=== PATIENT | female | born 1970 | race Caucasian/White ===

== ENCOUNTER 2016-11-19 16:42 | Inpatient (IN) | payer MEDICAID, OTHER ==
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
[2016-11-19] MEDS ORDERED: ZIPRASIDONE 20 MG VIAL IM STA (17:13)
[2016-11-19] MEDS ORDERED: LORazepam 2 MG/ML SYRINGE IM STA (22:52)
[2016-11-20] MEDS ORDERED: ZIPRASIDONE 20 MG VIAL IM PRN (05:26)
[2016-11-20] MEDS ORDERED: ACETAMINOPHEN TAB 325 MG TAB PO PRN (05:26)
[2016-11-20] MEDS ORDERED: MAGNESIUM HYDROXIDE 2,400 MG/10 ML CUP PO PRN (05:26)
[2016-11-20] MEDS ORDERED: MAG HYDROX/AL HYDROX/SIMETH 30 ML CUP PO PRN (05:26)
[2016-11-20] MEDS ORDERED: LORazepam 1 MG TAB PO PRN (06:16)
[2016-11-20] MEDS: CHOLECALCIFEROL 1,000 UNIT TAB PO SCH (08:56)
[2016-11-20] MEDS: PANTOPRAZOLE 40 MG TABLET PO SCH (08:56)
[2016-11-20] MEDS: TOPIRAMATE 25 MG TAB PO SCH ×2 (08:56→20:55)
[2016-11-20] MEDS: VERAPAMIL SR 120 MG TABLET.ER PO SCH (08:56)
[2016-11-20] MEDS: INDOMETHACIN 25 MG CAP PO SCH (08:57)
[2016-11-20] MEDS ORDERED: GABAPENTIN 300 MG CAP PO SCH (09:00)
[2016-11-20] MEDS: IBUPROFEN 800 MG TAB PO PRN (09:01)
[2016-11-20] MEDS: HYDROcodone/APAP 5-325MG 1 EACH TAB PO PRN ×2 (11:36→23:47)
[2016-11-20] MEDS ORDERED: NICOTINE 14MG/24HR PATCH TRANSDERM SCH (12:00)
[2016-11-20] MEDS: NICOTINE 21MG/24HR PATCH TRANSDERM SCH (13:16)
--- NOTE | 2016-11-20 14:29 | P.HP ---
Psychiatric H&P - . H&P Date: 11/20/16 History & Physical: Allergies Allergy/AdvReac Type Severity Reaction Status Date / Time No Known Allergies Allergy Verified 11/19/16 16:52 Vital Signs Temp Pulse 88 11/19/16 23:30 Resp 18 11/19/16 23:30 BP 147/82 11/19/16 23:30 Pulse Ox 97 11/19/16 23:30 11/20/16 14:16 IDENTIFYING DATA: A 46 year old single female patient HPI: Was admitted to the inpatient psychiatric unit at [facility] on an involuntary basis. 3 separate petitions done, one by boyfriend, one by her aunt and one by her mother. Mother's petition makes reference to the patient threatening suicide by taking all her medicine and "threatened to shoot me and everyone in family." The patient relays that her mom called the realtime court reporter and reports that her mom goes" overboard." Patient states that her mom thought that she was going to do something to herself. She says that her son overdosed a few days ago and she was trying to get her family to listen to her. She states there was also some alcohol involved at sounds on her part. She says she feels like things were taken out of context. Patient states that she got really mad and she tends to say things but she never acts on them. She says the issue with her son has increased her level of anxiety. She does tend to worry a lot. She also says she has a hard time concentrating. She does relate that she made some threatening statements in general but not to a specific person. She feels like she is betts. PAST PSYCHIATRIC HISTORY: She denies any history of suicide attempts. She denies any psychiatric hospital or lesions. She is not in any current outpatient treatment. She denies any current psychotropic medications. She has been on Lexapro in the past which she took for approximately a year. She has been on Xanax in the past which helped her. She does think she has had some manic-type episodes. She denies that she's had any episodes where she's had significant reckless behaviors, says she's probably had some racing thoughts. PMH: Headaches, back/leg injuries, low vitamin D, gastroesophageal reflux disease ALLERGIES: No known ALLERGIES MEDICATIONS: Tylenol when necessary, [place] when necessary, Maalox when necessary , vitamin D3, Flexeril when necessary, gabapentin, Motrin when necessary, Indocin, Ativan when necessary, milk of magnesia when necessary, Habitrol patch , Protonix, Topamax, Isoptin SR, Geodon when necessary CHEMICAL DEPENDENCY HISTORY: Drinks occasional alcohol, says it's never been a problem. FAMILY PSYCHIATRIC HISTORY: Paternal uncle with schizophrenia, mom she thinks has depression. FAMILY CHEMICAL DEPENDENCY HISTORY: Not known at this time. SOCIAL HISTORY: Was living with her mom, not sure what she is going to do in terms of living situation when she gets out of here. She is single, never been . She doesn't current relationship. She has 2 children. She is not currently working. MENTAL STATUS EXAM: She is alert and cooperative with the interview overall. Her speech shows some rapidness at times. Her mood is described as "definitely depressed about it." She believes also feeling agitated because she sitting here instead of the oldest see her relatives. She denies any auditory or visual hallucinations. She denies any thoughts of harm to self or others. She does report that she gets angry at her mom but denies any actual thoughts of harm to her. She does not seem to make any lorenzo delusional statements. Cognitively she appears very grossly intact. She does seem to lose her focus on the examination at times. Her insight has some limitations, judgment shows evidence of recent impairment. STRENGTHS/WEAKNESSES: Strengths-some support; weaknesses-coping skills INTELLECTUAL FUNCTIONING: average IMPRESSIONS: AXIS I : unspecified depressive disorder; rule out bipolar 2 disorder depressed ; generalized anxiety disorder AXIS II: deferred AXIS III: history of back/leg injuries, low vitamin D, gastroesophageal reflux disease, headaches AXIS IV: family stress, living situation AXIS V: 30 PLAN: Patient will be admitted to the inpatient psychiatric unit at [facility] on an involuntary basis. Second clinical certificate is done for involuntary commitment. Patient is not agreeable for adult formal voluntary. She'll be placed on SP 15 minute precautions. We'll monitor regarding any suicidal ideations or thoughts of harm to others. Medical consultation will be ordered and Baseline laboratory workup will be done the patient. I will cover this patient for Dr. Roque through the weekend. She'll participate in group and activity therapies. We'll titrate up on Neurontin 400 mg 3 times a day to help assist with some mood stabilization properties as well as may also get further benefit for anxiety. We'll also reinitiated Lexapro for depression and anxiety at 10 more grams daily. We will look into any family supports. Estimated length of stay is 5-7 days. Prognosis is guarded.
[2016-11-20] MEDS: ESCITALOPRAM 10 MG TAB PO SCH (15:06)
[2016-11-20] MEDS: GABAPENTIN 400 MG CAP PO SCH ×2 (15:07→20:55)
[2016-11-20] MEDS: CYCLOBENZAPRINE 10 MG TAB PO PRN (15:08)
--- NOTE | 2016-11-20 18:56 | CONS ---
DATE OF CONSULTATION: REASON FOR CONSULTATION: Management of hypertension. Recommendations regarding antihypertensive medications and medical clearance. 46-year-old female is admitted to the hospital through the psychiatry floor because of suicidal ideation and ( ) the patient denied any fever or chills. The patient denied any nausea or vomiting. The patient denied any abdominal pain, dysuria and the patient is definitely depression. REVIEW OF SYSTEMS: CONSTITUTIONAL: No fever, no malaise, no fatigue. HEENT: No recent visual problems or hearing problems. Denied any sore throat. CARDIOVASCULAR: No chest pain, orthopnea, PND, no palpitations, no syncope. PULMONARY: No shortness of breath, no cough, no hemoptysis. GASTROINTESTINAL: No diarrhea, no nausea, no vomiting, no abdominal pain. Normoactive bowel sounds. NEUROLOGICAL: No headaches, no weakness, no numbness. HEMATOLOGICAL: Denies any bleeding or petechiae. GENITOURINARY: Denies any burning micturition, frequency, or urgency. MUSCULOSKELETAL/RHEUMATOLOGICAL: Denies any joint pain, swelling, or any muscle pain. ENDOCRINE: Denies any polyuria or polydipsia. The rest of the 14 point review of systems is negative. Home medications include: 1. Cholecalciferol. 2. Gabapentin. 3. Acetaminophen. 4. Hydrocodone. 5. ( ). 6. Potassium. 7. ( ). 8. Depo Provera. 9. Protonix. 10. Topamax. 11. Verapamil. 12. The patient also takes cyclobenzaprine. ALLERGIES: No known drug allergies. PAST MEDICAL HISTORY: Significant for hypertension, migraine. Patient takes Verapamil actually for hypertension, which also helps with migraine, chronic low back pain and peripheral neuropathy, orthopedic surgery in the past. The patient does smoke. Daily use of marijuana. Daily alcohol use and marijuana use. PHYSICAL EXAMINATION: VITAL SIGNS: Temperature afebrile, pulse of 92, blood pressure is 112/68, saturating at 100% on room air. GENERAL: The patient is alert and oriented x3, not in any acute distress. Well developed, well nourished. HEENT: Pupils are round and equally reacting to light. EOMI. No scleral icterus. No conjunctival pallor. Normocephalic, atraumatic. No pharyngeal erythema. No thyromegaly. CARDIOVASCULAR: S1 and S2 present. No murmurs, rubs, or gallops. PULMONARY: Chest is clear to auscultation, no wheezing or crackles. ABDOMEN: Soft, nontender, nondistended, normoactive bowel sounds. No palpable organomegaly. MUSCULOSKELETAL: No joint swelling or deformity. EXTREMITIES: No cyanosis, clubbing, or pedal edema. NEUROLOGICAL: Gross neurological examination did not reveal any focal deficits. SKIN: No rashes. LABORATORY DATA: I do not have the lab data available at this point of time. ASSESSMENT AND PLAN: 1. Suicidal ideation and severe depression, management as per primary service. 2. Hypertension and patient appears to be done well on Verapamil ( ) and also helps with her migraine. Patient does have migraine and patient also uses Topamax, recommend to continue both. 3. Migraine management as mentioned above. 4. Gastroesophageal reflux disease, continue with Protonix. 5. Peripheral neuropathy and chronic low back pain and continue her home medication. Patient does not have any signs or symptoms of gastritis or gastroesophageal reflux disease. Patient is already on proton pump inhibitor which can be continued as well. But needs to be switched H2-isabelle as an outpatient, long-term proton pump inhibitors have a lot of side effects including osteoporosis. Thank you for letting me participate in this patient's care. Will sign off at this point of time. Call us back if needed.
[2016-11-21 07:12] VITALS: TEMP 98
[2016-11-21] MEDS: CHOLECALCIFEROL 1,000 UNIT TAB PO SCH (08:33)
[2016-11-21] MEDS: TOPIRAMATE 25 MG TAB PO SCH ×2 (08:37→20:20)
[2016-11-21] MEDS: NICOTINE 21MG/24HR PATCH TRANSDERM SCH (08:37)
[2016-11-21] MEDS: GABAPENTIN 400 MG CAP PO SCH ×3 (08:37→20:20)
[2016-11-21] MEDS: PANTOPRAZOLE 40 MG TABLET PO SCH (08:37)
[2016-11-21] MEDS: ESCITALOPRAM 10 MG TAB PO SCH (08:38)
[2016-11-21] MEDS: CYCLOBENZAPRINE 10 MG TAB PO PRN ×3 (08:38→22:25)
[2016-11-21] MEDS: INDOMETHACIN 25 MG CAP PO SCH (08:38)
[2016-11-21] MEDS: HYDROcodone/APAP 5-325MG 1 EACH TAB PO PRN ×2 (08:39→20:21)
[2016-11-21] MEDS: IBUPROFEN 800 MG TAB PO PRN ×3 (08:41→22:25)
[2016-11-21] MEDS: VERAPAMIL SR 120 MG TABLET.ER PO SCH (08:45)
[2016-11-21 10:55] LABS: Basophils % (A) 0 %; CH 31.3; CHCM 31.8; Eosinophils # (A) 0.2 k/uL (0-0.7); Eosinophils % (A) 3 %; HDW 2.32; HGB 11.8 gm/dL (11.4-16.0); Luc # (Auto) 0.06; Luc % (Auto) 1; Lymphocytes # (A) 1.7 k/uL (1.0-4.8); Lymphocytes % (A) 24 %; MCH 30.1 pg (25.0-35.0); MCHC 30.3 g/dL (31.0-37.0); MCV 99.1 fL (80.0-100.0); Mean Platelet Volume 7.2; Monocytes # (A) 0.4 k/uL (0-1.0); Monocytes % (A) 5 %; Neutrophils # (A) 4.7 k/uL (1.3-7.7); Neutrophils % (A) 67 %; RBC 3.93 m/uL (3.80-5.40); WBC 7.1 k/uL (3.8-10.6); WBC (Perox) 7.38
[2016-11-21 11:08] LABS: ALT 33 U/L (9-52); AST 23 U/L (14-36); Alkaline Phosphatase 60 U/L (38-126); Anion Gap 10 mmol/L; Blood Urea Nitrogen 13 mg/dL (7-17); Calcium 9.3 mg/dL (8.4-10.2); Carbon Dioxide 25 mmol/L (22-30); Chloride 107 mmol/L (98-107); Glucose 83 mg/dL (74-99); Non-African American GFR(MDRD) >60 (>60 ml/min/1.73 sqM); Sodium 142 mmol/L (137-145); Total Bilirubin 0.4 mg/dL (0.2-1.3); Total Protein 6.7 g/dL (6.3-8.2)
[2016-11-21 11:09] VITALS: BMI 26.3
--- NOTE | 2016-11-21 18:04 | P.PN ---
Progress Note - Text Interval history: Patient seen in cross coverage today for Dr. Roque. She reports that she slept well last night. She is eating well. She says that she did talk with a family member on the phone which seemed to go well. She does feel like her mood is doing well considering that she is in the hospital she relays. She does seem agreeable to treatment and agreeable to outpatient treatment. She does not seem to voice any adverse psychotropic medication side effects she relays that she has been off of the Indocin because she was only supposed to take it for 2 weeks. Mental status exam: She is alert and cooperative with the interview. Her speech is fluent, not rapid or pressured. Thought processes organized. She describes her mood is doing well considering that she is in the hospital. She denies any thoughts of harm to self or others. There is no evidence of psychosis or agitation at this time. Plan: Patient will be maintained on current psychotropic medications. Dr. Roque will initiate care this patient starting tomorrow. She will be having upcoming deferral which she is given education about. Continue to monitor regarding any thoughts of harm to self or others. Monitor for any psychotropic medication side effects.
[2016-11-22] MEDS: IBUPROFEN 800 MG TAB PO PRN ×2 (09:33→21:42)
[2016-11-22] MEDS: HYDROcodone/APAP 5-325MG 1 EACH TAB PO PRN ×2 (09:34→21:41)
[2016-11-22] MEDS: NICOTINE 21MG/24HR PATCH TRANSDERM SCH (09:35)
[2016-11-22] MEDS: GABAPENTIN 400 MG CAP PO SCH ×4 (09:35→21:41)
[2016-11-22] MEDS: ESCITALOPRAM 10 MG TAB PO SCH (09:35)
[2016-11-22] MEDS: PANTOPRAZOLE 40 MG TABLET PO SCH (09:35)
[2016-11-22] MEDS: CHOLECALCIFEROL 1,000 UNIT TAB PO SCH (09:35)
[2016-11-22] MEDS: VERAPAMIL SR 120 MG TABLET.ER PO SCH (09:35)
[2016-11-22] MEDS: TOPIRAMATE 25 MG TAB PO SCH ×3 (09:35→21:41)
[2016-11-22] MEDS: CYCLOBENZAPRINE 10 MG TAB PO PRN (15:36)
[2016-11-22 15:58] VITALS: RESP 18
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
[2016-11-23 06:46] VITALS: BP 110/57; PULSE 72
[2016-11-23] MEDS: NICOTINE 21MG/24HR PATCH TRANSDERM SCH (09:06)
[2016-11-23] MEDS: PANTOPRAZOLE 40 MG TABLET PO SCH (09:07)
[2016-11-23] MEDS: GABAPENTIN 400 MG CAP PO SCH (09:07)
[2016-11-23] MEDS: CHOLECALCIFEROL 1,000 UNIT TAB PO SCH (09:08)
[2016-11-23] MEDS: ESCITALOPRAM 10 MG TAB PO SCH (09:08)
[2016-11-23] MEDS: VERAPAMIL SR 120 MG TABLET.ER PO SCH (09:08)
[2016-11-23] MEDS: IBUPROFEN 800 MG TAB PO PRN (09:10)
[2016-11-23] MEDS: HYDROcodone/APAP 5-325MG 1 EACH TAB PO PRN (09:12)
[2016-11-23] MEDS: CYCLOBENZAPRINE 10 MG TAB PO PRN (09:13)
--- NOTE | 2016-11-23 13:12 | P.DS ---
Providers Date of admission: 11/19/16 23:17 Attending physician: Anmol Roque MD Consults: 11/20/16 09:48 Consult Physician Routine Consulting Provider: Jhon Santiago Consult Reason/Comments: h&p Do you want consulting provider notified?: Already Contacted Primary care physician: Raheem Newberry - Discharge Diagnosis(es) (1) Alcohol use disorder Current Visit: Yes Status: Chronic Priority: High (2) Depressive disorder, not elsewhere classified Current Visit: Yes Status: Chronic Priority: Medium (3) Cluster B personality disorder Current Visit: Yes Status: Chronic Priority: High (4) Homicidal ideation Current Visit: Yes Status: Resolved Priority: Low Hospital Course: Mrs. Gomez is a 46-year-old female who presented to the psychiatric unit involuntarily with 3 separate petitions; one by her boyfriend, one by her aunt and one by her mother. The petitions reference her making suicidal statements about overdosing on medication and threatening to shoot her mother and other family. She was minimally cooperative and denied the allegations in the petition. I spoke with her mother and her aunt Mary Anne. They report that whenever she drinks alcohol she becomes "mean", hostile and threatening. On the day of admission she was drinking alcohol and told her aunt that she wanted to "kill" her mother and other family members. Her mother reported that Barbi "has changed" over the last 6 months which she seems more irritable and difficulty concentrating. Barbi was preoccupied about his son who would overdose on heroin about a week prior to admission. She alleged that she was angry with her family because they were not sympathetic towards her son. She denied that she had directly threatened her mother and accepted no responsibility for her actions or behavior. We admitted her to the psychiatric unit on a care of this underwriter. We provided a biopsychosocial assessment. The technology methodology consultant long distance operator completed the physical exam and medical history. He long distance operator diagnosed hypertension, migraine headaches, GERD, peripheral neuropathy and low back pain. He recommended to continue her outpatient medications including verapamil, Topamax, Protonix and gabapentin. She did not show signs or symptoms of alcohol withdrawal. She was angry and hostile. We started Lexapro 10 mg per day for the treatment of depression symptoms. She denied side effects to the initial doses. She takes client a trial of lithium and/or Seroquel for augmentation of antidepressant and and treatment of her anger and irritability. The geriatric social work professor met with her and her . Her was supportive of her receiving services and did not believe that she was a threat to herself or her family. She felt agreed to a deferral and comply with outpatient mental health treatment. During our final meeting she denied that she has thoughts of harm towards her mother ( although she continued to deny that she had made such statements to her aunt). We exercise due to warn by notifying her mother that she would be discharged to her boyfriend's home. Out diagnostic impressions include alcohol use disorder, unspecified depressive disorder and cluster B personality disorder. Patient Condition at Discharge: Fair Plan - Discharge Summary New Discharge Prescriptions: Escitalopram [Lexapro] 10 mg PO DAILY #30 tab Gabapentin [Neurontin] 400 mg PO TID #90 cap Nicotine 21Mg/24Hr Patch [Habitrol] 1 patch TRANSDERM DAILY #14 patch Discharge Medication List Cyclobenzaprine [Flexeril] 10 mg PO TID PRN #15 tab 04/19/16 [Rx] Cholecalciferol [Vitamin D3] 5,000 unit PO DAILY 11/19/16 [History] Hydrocodone/Acetaminophen [[place] 5-325] 1 tab PO BID PRN 11/19/16 [History] Ibuprofen [Motrin] 800 mg PO TID PRN 11/19/16 [History] Indomethacin [Indocin] 50 mg PO DAILY 11/19/16 [History] Medroxyprogesterone Acetate [Depo-Provera] 150 mg IM Q90D 11/19/16 [History] Pantoprazole [Protonix] 40 mg PO DAILY 11/19/16 [History] Topiramate [Topamax] 25 mg PO BID 11/19/16 [History] Verapamil HCl [Verapamil ER] 120 mg PO DAILY 11/19/16 [History] Escitalopram [Lexapro] 10 mg PO DAILY #30 tab 11/23/16 [Rx] Gabapentin [Neurontin] 400 mg PO TID #90 cap 11/23/16 [Rx] Nicotine 21Mg/24Hr Patch [Habitrol] 1 patch TRANSDERM DAILY #14 patch 11/23/16 [ Rx] Follow up Appointment(s)/Referral(s): Raheem Newberry MD [Primary Care Provider] - 1-2 days Discharge Disposition: HOME SELF-CARE
== END 2016-11-23 14:29 | disposition home or self-care (01) | DRG 881 ==
LOC: EC 16:42 → 3MHU 23:17
PROVIDERS: ADMIT Psychiatry & Neurology Psychiatry; ATTEND Psychiatry & Neurology Psychiatry
DX: F32.9 Major depressive disorder, single episode, unspecified (principal); G62.9 Polyneuropathy, unspecified; R45.851 Suicidal ideations; F10.10 Alcohol abuse, uncomplicated; I10 Essential (primary) hypertension; R45.850 Homicidal ideations; F60.89 Other specific personality disorders; G43.909 Migraine, unspecified, not intractable, without status migrainosus; K21.9 Gastro-esophageal reflux disease without esophagitis; G89.29 Other chronic pain; M54.5 Low back pain; F12.90 Cannabis use, unspecified, uncomplicated; Z91.410 Personal history of adult physical and sexual abuse; Z78.1 Physical restraint status; F17.200 Nicotine dependence, unspecified, uncomplicated; F41.9 Anxiety disorder, unspecified; Z79.899 Other long term (current) drug therapy; Z81.8 Family history of other mental and behavioral disorders
CPT/HCPCS: 80053; 82075; 84443; 85025; 96372; 99285

== ENCOUNTER → 2017-12-13 | Outpatient (CLI) | payer OTHER ==
[2017-12-13 12:36] LABS: Blood Urea Nitrogen 15 mg/dL (7-17)
== END | disposition home or self-care (01) ==
LOC: LABWHC1 11:53
PROVIDERS: ATTEND Psychiatry & Neurology Pain Medicine
DX: Z51.81 Encounter for therapeutic drug level monitoring (principal)
CPT/HCPCS: 36415; 82565; 84520

== ENCOUNTER → 2018-01-10 | Outpatient (CLI) | payer OTHER ==
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
--- NOTE | 2018-01-11 12:13 | MM ---
Reason for exam: screening (asymptomatic). Last mammogram was performed 1 year and 9 months ago. Physical Findings: A clinical breast exam by your physician is recommended on an annual basis and results should be correlated with mammographic findings. MG Screening Mammo w CAD Bilateral CC and MLO view(s) were taken. Prior study comparison: April 23, 2016, bilateral MG screening mammo w CAD. The breast tissue is heterogeneously dense. This may lower the sensitivity of mammography. No suspicious abnormality. No significant changes when compared with prior studies. ASSESSMENT: Negative, BI-RAD 1 RECOMMENDATION: Routine screening mammogram of both breasts in 1 year.
[2018-01-12 08:51] LABS: C. trachomatis,PCR Negative (Neg,Equiv); Chlamydia trachomatis Source Cervix; N. gonorrhoeae,PCR Negative (Neg,Equiv); Neisseria Source Cervix
== END | disposition home or self-care (01) ==
LOC: LABWHC1 08:08
PROVIDERS: ATTEND Obstetrics & Gynecology
DX: Z12.31 Encounter for screening mammogram for malignant neoplasm of breast (principal); R10.2 Pelvic and perineal pain; Z11.3 Encounter for screening for infections with a predominantly sexual mode of transmission
CPT/HCPCS: 77067; 87491; 87591

== ENCOUNTER → 2018-01-17 | Outpatient (CLI) | payer OTHER ==
--- NOTE | 2018-01-17 15:13 | US ---
EXAMINATION TYPE: US pelvic complete plus dopplers DATE OF EXAM: 01/17/2018 COMPARISON: 10/13/2016 CLINICAL HISTORY: 47-year-old female R10.2 PELVIC PAIN; intermittent bilateral pelvic pain; right rosa m e greater than left now; ; on Dep provera shot; LMP approximately 2 months ago TECHNIQUE: Transvaginal (TV). Patient unable to fill bladder after 1 hour, so, transvaginal sonogra phic images were medically necessary to better assess the anatomy as patient chose not to wait for th e bladder to fill. Color Doppler and spectral waveform analysis of the ovarian arteries and veins. Date of LMP: 2 months ago Findings: Uterus: Anteverted measuring 5.9 x 3.5 x 3.1 cm. There is a small 2 mm cervical nabothian cyst. Endometrial Stripe: 0.8 cm. There is a rounded 6 x 5 x 4 mm cystic area along the anterior right para median endometrium along the fundus/body. Right Ovary: 2.5 x 2.7 x 1.4 cm Left Ovary: 3.2 x 1.6 x 2.4 cm Small follicles are present on both sides. Satisfactory arterial and venous flow seen in both ovaries. No evident adnexal abnormality or cul-de-sac free fluid. IMPRESSION: 1. No sonographic evidence for ovarian torsion. 2. Small 6 mm cystic area along the endometrium at the fundus/body. Nonspecific finding, possible foc al area of endometrial breakdown. Consider 6-8 week follow-up exam to reassess. 3. Endometrial stripe measuring 8 mm.
== END | disposition home or self-care (01) ==
LOC: RADUSWWP 12:56
PROVIDERS: ATTEND Obstetrics & Gynecology
DX: N85.8 Other specified noninflammatory disorders of uterus (principal)
CPT/HCPCS: 76830

== ENCOUNTER 2018-03-30 05:32 | Emergency (ER) | payer OTHER ==
[2018-03-30] MEDS ORDERED: LORazepam 2 MG/ML INJ IM STA (05:34)
[2018-03-30] MEDS ORDERED: ZIPRASIDONE 20 MG VIAL IM STA (05:34)
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
[2018-03-30 06:24] LABS: Basophils % (A) 0 %; Eosinophils # (A) 0.1 k/uL (0-0.7); Eosinophils % (A) 1 %; HCT 42.9 % (34.0-46.0); HGB 13.6 gm/dL (11.4-16.0); Lymphocytes # (A) 0.9 k/uL (1.0-4.8); Lymphocytes % (A) 9 %; MCH 29.9 pg (25.0-35.0); MCHC 31.7 g/dL (31.0-37.0); MCV 94.3 fL (80.0-100.0); Mean Platelet Volume 6.9; Monocytes # (A) 0.3 k/uL (0-1.0); Monocytes % (A) 3 %; Neutrophils % (A) 86 %; Platelet Count 378 k/uL (150-450); RBC 4.55 m/uL (3.80-5.40); RDW 13.4 % (11.5-15.5); WBC 10.4 k/uL (3.8-10.6)
[2018-03-30 06:51] LABS: Albumin 4.9 g/dL (3.5-5.0); Calcium 10.4 mg/dL (8.4-10.2); Potassium 3.9 mmol/L (3.5-5.1); Total Bilirubin 0.9 mg/dL (0.2-1.3); Total Protein 7.5 g/dL (6.3-8.2)
[2018-03-30 12:56] VITALS: BP 103/52; PULSE 78; RESP 16
[2018-03-30 13:00] VITALS: TEMP 98
== END 2018-03-30 12:55 | disposition home or self-care (01) ==
LOC: EC 05:32
DX: F43.20 Adjustment disorder, unspecified (principal); F19.10 Other psychoactive substance abuse, uncomplicated; I10 Essential (primary) hypertension; F17.200 Nicotine dependence, unspecified, uncomplicated; Z79.891 Long term (current) use of opiate analgesic; Z79.52 Long term (current) use of systemic steroids; Z79.899 Other long term (current) drug therapy
CPT/HCPCS: 82075; 36415; 93005; 80053; 84443; 85025; 99285; 96372 ×2; J2060; J3486

== ENCOUNTER → 2018-05-31 | Outpatient (CLI) | payer OTHER ==
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
== END | disposition home or self-care (01) ==
LOC: RADMRIMAIN 19:21
PROVIDERS: ATTEND Internal Medicine
DX: M48.02 Spinal stenosis, cervical region (principal); M50.30 Other cervical disc degeneration, unspecified cervical region; G37.8 Other specified demyelinating diseases of central nervous system; Q04.8 Other specified congenital malformations of brain
CPT/HCPCS: 70553; 72156; A9581

== ENCOUNTER 2019-11-04 20:18 | Inpatient (IN) | payer MEDICAID, OTHER ==
[2019-11-04] MEDS ORDERED: SODIUM CHLORIDE 0.9% 1,000 ML IV STA (20:48)
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
[2019-11-04] MEDS ORDERED: LORazepam 2 MG/ML INJ IM STA (20:52)
[2019-11-04] MEDS ORDERED: diphenhydrAMINE 50 MG/ML 1 ML VIAL IM STA (20:52)
[2019-11-04] MEDS ORDERED: ZIPRASIDONE 20 MG VIAL IM STA (20:53)
[2019-11-04] MEDS: LORazepam 2 MG/ML INJ IV STA ×2 (21:13→21:15)
[2019-11-04] MEDS ORDERED: LORazepam 2 MG/ML INJ IV STA (21:15)
[2019-11-04 21:19] LABS: Basophils # (A) 0.1 k/uL (0-0.2); Basophils % (A) 0 %; Eosinophils # (A) 0.3 k/uL (0-0.7); Eosinophils % (A) 2 %; HGB 13.4 gm/dL (11.4-16.0); Lymphocytes # (A) 2.8 k/uL (1.0-4.8); Lymphocytes % (A) 19 %; MCH 31.6 pg (25.0-35.0); MCHC 33.4 g/dL (31.0-37.0); MCV 94.7 fL (80.0-100.0); Mean Platelet Volume 6.9; Monocytes # (A) 0.6 k/uL (0-1.0); Monocytes % (A) 4 %; Neutrophils # (A) 10.5 k/uL (1.3-7.7); Neutrophils % (A) 72 %; Platelet Count 433 k/uL (150-450); RBC 4.22 m/uL (3.80-5.40); RDW 12.6 % (11.5-15.5); WBC 14.5 k/uL (3.8-10.6)
[2019-11-04 21:33] LABS: Acetaminophen <10.0 ug/mL; African American GFR (CKD) >90 (>60 ml/min/1.73 sqM); Anion Gap 12 mmol/L; Blood Urea Nitrogen 15 mg/dL (7-17); Calcium 9.9 mg/dL (8.4-10.2); Carbon Dioxide 23 mmol/L (22-30); Chloride 104 mmol/L (98-107); Glucose 103 mg/dL (74-99); Lithium <0.2 mmol/L; Non-African American GFR(CKD) 84 (>60 ml/min/1.73 sqM); Phosphorus 4.3 mg/dL (2.5-4.5); Potassium 3.7 mmol/L (3.5-5.1); Salicylate <1.0 mg/dL; Sodium 139 mmol/L (137-145)
[2019-11-04 21:38] LABS: Alcohol 82 mg/dL; Valproic Acid (Depakene) <10.0 ug/mL
[2019-11-04 23:04] LABS: Appearance,Urine Clear (Clear); Bilirubin,Urine Negative (Negative); Blood,Urine Negative (Negative); Color,Urine Yellow; Glucose,Urine (UA) Negative (Negative); Ketones,Urine Negative (Negative); Leukocyte Esterase,Urine Negative (Negative); Nitrite,Urine Negative (Negative); PH, Urine 5.5 (5.0-8.0); Protein,Urine Negative (Negative); Urobilinogen,Urine <2.0 mg/dL (<2.0)
[2019-11-04 23:15] LABS: Amphetamine Screen,Urine Detected (NotDetected); Barbiturate Screen,Urine Not Detected (NotDetected); Benzodiazepines Screen,Urine Not Detected (NotDetected); Cocaine Screen,Urine Not Detected (NotDetected); Methadone Screen, Urine Not Detected (NotDetected); Opiate Screen,Urine Not Detected (NotDetected); Oxycodone Screen, Urine Not Detected (NotDetected); Phencyclidine Screen,Urine Not Detected (NotDetected); Tricyclic Antidepressant,Urine Not Detected (NotDetected); Urn Cannabinoid Scrn Not Detected (NotDetected)
[2019-11-05] MEDS ORDERED: ZIPRASIDONE 20 MG VIAL IM PRN (03:34)
[2019-11-05] MEDS ORDERED: MAGNESIUM HYDROXIDE 2,400 MG/10 ML CUP PO PRN (03:34)
[2019-11-05] MEDS ORDERED: MAG HYDROX/AL HYDROX/SIMETH 30 ML CUP PO PRN (03:34)
[2019-11-05] MEDS ORDERED: LORazepam 2 MG/ML INJ IM PRN (03:38)
[2019-11-05] MEDS ORDERED: VORTIOXETINE HYDROBROMIDE 10 MG TABLET PO SCH (09:00)
[2019-11-05] MEDS: NICOTINE 14MG/24HR PATCH TRANSDERM SCH (10:05)
[2019-11-05] MEDS ORDERED: QUEtiapine 25 MG TAB PO PRN (13:04)
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
[2019-11-05 15:18] LABS: Albumin 4.9 g/dL (3.5-5.0); Bilirubin, Delta 0.4 mg/dL (0.0-0.2); Bilirubin,Unconjugated 0.3 mg/dL (0.0-1.1); Total Bilirubin 0.7 mg/dL (0.2-1.3); Total Protein 7.7 g/dL (6.3-8.2)
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
[2019-11-05 20:03] LABS: Hemoglobin A1C 5.2 % (4.0-6.0)
[2019-11-05] MEDS: MIRTAZAPINE 15 MG TAB PO SCH (20:47)
[2019-11-05] MEDS ORDERED: QUEtiapine 50 MG TAB PO SCH (21:00)
[2019-11-06] MEDS: NICOTINE 14MG/24HR PATCH TRANSDERM SCH (09:08)
--- NOTE | 2019-11-06 14:16 | P.PN ---
Subjective Progress Note Date: 11/06/19 Chief complaint: "I am pretty upset " Subjective: The patient has been seen today as follow-up, chart reviewed, case discussed with the treatment team. Patient slept about 2 hours last night. The patient remained confused and delusional. The patient is not able to carry on a conversation. The patient is insisting to be discharged and shows lack of insight into her mental health issues. The patient complained of poor sleep at night and insists that she would be able to sleep good and if she was home. The patient wonders in the hallway and is difficult to redirect. The patient's his speech is rambling and difficult to redirect. She denies any auditory or visual hallucinations but appears to be preoccupied and responding to internal cues. The patient denies any active suicidal or homicidal ideations at this time but appears paranoid. The patient is requesting to be seen by her primary care physician Dr. Smith. Objective - Vital Signs Vital signs: Vital Signs Temp 97.9 F 11/05/19 05:30 Pulse 100 11/05/19 05:30 Resp 16 11/05/19 05:30 BP 148/76 11/05/19 05:30 Pulse Ox 99 11/05/19 05:30 - Exam Mental Status Exam: General Appearance: Patient appears to be stated age is alert, directable. fPatient has fair eye contact. Behavior: Patient is seated without any agitated behavior. Appears to be anxious Speech: Patient's speech is rambling and difficult to redirect. Mood/Affect: Patient reports their mood/anxiety is depressed, affect is congruent Suicidality/Homicidality: Patient denies having suicidal or homicidal ideation. Perceptions: Patient denies any auditory or visual hallucinations but appears to be preoccupied and responding to internal cues Though content/process: Paranoia Memory and concentration: AOX3, grossly intact for the purposes of this session. Judgment and insight: Limited - Labs CBC & Chem 7: 11/04/19 21:05 11/04/19 21:05 Labs: Abnormal Lab Results - Last 24 Hours (Table) 11/04/19 Range/Units 21:05 Delta Bilirubin 0.4 H (0.0-0.2) mg/dL AST 73 H (14-36) U/L ALT 139 H (4-34) U/L Cholesterol 204 H (<200) mg/dL HDL Cholesterol 121 H (40-60) mg/dL Assessment and Plan Assessment: unspecified depressive disorder; rule out bipolar 2 disorder depressed; generalized anxiety disorder Plan: One-to-one supportive psychotherapy as well as reality orientation provided Limit setting Continue Remeron 7.5 mg by mouth daily at bedtime We will increase Seroquel to mg 100 mg by mouth daily at bedtime and 50 mg twice a day when necessary. We will consult Dr. Raheem Good per patient's request. We'll continue to monitor monitor patient closely for any possible side effects of worsening of the symptoms at this time
[2019-11-06] MEDS ORDERED: QUEtiapine 50 MG TAB PO PRN (21:00)
[2019-11-06] MEDS ORDERED: QUEtiapine 100 MG TAB PO SCH (21:00)
[2019-11-06] MEDS: MIRTAZAPINE 15 MG TAB PO SCH (21:41)
[2019-11-07] MEDS: NICOTINE 14MG/24HR PATCH TRANSDERM SCH (10:41)
--- NOTE | 2019-11-07 14:44 | P.PN ---
Subjective Progress Note Date: 11/07/19 Chief complaint: "I am pretty upset " Subjective: The patient has been seen today as follow-up, chart reviewed, case discussed with the treatment team. The patient refused to come into the office for the session and was seen in her room. The patient refused to answer questions. The patient reports not doing well and reports feeling increasingly depressed about being in the hospital. The patient reports poor sleep and appetite. The patient remained somewhat confused and delusional at this time. The patient has been isolating herself in her room and does not participate in milieu therapy. The patient has been compliant with the medications and denies any side effects at this time. Objective - Vital Signs Vital signs: Vital Signs Temp 97.9 F 11/05/19 05:30 Pulse 97 11/06/19 23:56 Resp 20 11/06/19 21:45 BP 133/88 11/06/19 23:56 Pulse Ox 95 11/06/19 21:45 - Exam Mental Status Exam: General Appearance: Patient appears to be stated age is alert, directable. f Patient has fair eye contact. Behavior: Patient is seated without any agitated behavior. Appears to be anxious Speech: Patient's speech is rambling and difficult to redirect. Mood/Affect: Patient reports their mood/anxiety is depressed, affect is congruent Suicidality/Homicidality: Patient denies having suicidal or homicidal ideation. Perceptions: Patient denies any auditory or visual hallucinations but appears to be preoccupied and responding to internal cues Though content/process: Paranoia Memory and concentration: AOX3, grossly intact for the purposes of this session. Judgment and insight: Limited - Labs CBC & Chem 7: 11/04/19 21:05 11/04/19 21:05 Assessment and Plan Assessment: unspecified depressive disorder; rule out bipolar 2 disorder depressed; generalized anxiety disorder Plan: One-to-one supportive psychotherapy as well as reality orientation provided Limit setting Continue Remeron 7.5 mg by mouth daily at bedtime We will increase Seroquel to mg 150 mg by mouth daily at bedtime and 50 mg twice a day when necessary. We will consult Dr. Raheem Good per patient's request. We'll continue to monitor monitor patient closely for any possible side effects of worsening of the symptoms at this time
[2019-11-07] MEDS ORDERED: QUEtiapine 50 MG TAB PO SCH (21:00)
[2019-11-07] MEDS: MIRTAZAPINE 15 MG TAB PO SCH (22:36)
[2019-11-08] MEDS: NICOTINE 14MG/24HR PATCH TRANSDERM SCH (09:37)
--- NOTE | 2019-11-08 16:14 | P.PN ---
Progress Note - Text Progress Note Date: 11/08/19 Interval History: Patient was seen sitting on her bed in her room and was directable and agreeable to speak in the office. Patient appeared to be somewhat hesitant and suspicious of senior technical writer and was very constricted in her affect throughout the interview. Patient spoke about the circumstances of her coming into the hospital and kept on referring back to her being voluntary status on the unit. Patient threatened to leave the hospital many times to senior technical writer stating "you can't keep me here if I feel forced". Patient was paranoid and endorsed several different delusions. Patient was resistant to signed the medication consent form and did not want to speak about medications to senior technical writer. Patient states that her sleep continues to be poor and complains of having a depressed mood and anxiety. She states that she has not been going to groups. At this time patient denies any suicidal or homical ideations, intent or plan. Patient denies any auditory, visual hallucinations. Patient endorses paranoia and delusions. Patient denies any side effects from the medications and has been compliant with meds. Mental Status Exam: General Appearance: [Patient appears to be stated age is alert, directable yet is suspicious of senior technical writer. Patient has marginal hygiene and grooming. Patient has hoody sweatshirt on with it covering most of her head. Behavior: Patient is seated without any agitated behavior. Paranoid and argumentative. Speech: Patient's speech is fluent and nonpressured. Mood/Affect: Mood is depressed and anxious, affect is congruent and constricted. Suicidality/Homicidality: Patient denies having any suicidal or homicidal ideation intent or plan. Perceptions: Patient denies any auditory or visual hallucinations. Though content/process: Patient is paranoid however is goal oriented. Patient shares multiple different delusions and was argumentative with senior technical writer. Memory and concentration: AOX3, grossly intact for the purposes of this session Judgment and insight: Poor Assessment Major depressive disorder, with psychotic features Anxiety disorder unspecified Plan: -Patient continues to meet criteria for inpatient psychiatric admission for symptom stabilization and safety. Patient has signed adult voluntary form or refused to sign medication consent form. -Medications: At this time will discontinue patient's Remeron as patient has elevated LFTs. Will repeat blood repeat LFTs tomorrow morning. Increase Seroquel to 200 mg daily at bedtime for paranoia/psychosis. Patient is agreeable to start Prozac 20 mg daily for mood. -When necessary Geodon and Ativan for agitation/aggression. -NRT - nicotine patch -SW on board for discharge planning.
[2019-11-08] MEDS: QUEtiapine 200 MG TAB PO SCH (21:05)
[2019-11-09] MEDS: FLUoxetine HCL 20 MG CAP PO SCH ×3 (10:36→13:54)
[2019-11-09] MEDS: NICOTINE 14MG/24HR PATCH TRANSDERM SCH (10:36)
--- NOTE | 2019-11-09 10:44 | P.PN ---
Progress Note - Text Progress Note Date: 11/09/19 Interval History: Patient was seen sitting on her bed in her room and was directable and agreeable to speak in the office. Patient continues to have a depressed affect and is wearing a hoodie which is covering her head and was suspicious/paranoid of film writer. She was carrying several documents in her hand and spoke about her rights on the unit and was asking to be discharged several times during the interview. Patient was argumentative and continues to have poor insight and judgment. Patient continues to isolate herself in her room and is argumentative and somatically preoccupied. She spoke about pain in her year and also headaches which she claims that she is not "getting the right medicine". She claims that she slept approximately 5-6 hours last night and has fair energy. She claims that she has been eating well on the unit. Patient spoke about wanting to be with her employment law attorney and discussing her rights to leave the hospital. At this time patient denies any suicidal or homical ideations, intent or plan. Patient denies any auditory, visual hallucinations. Patient endorses paranoia and delusions. Patient denies any side effects from the medications and has been compliant with meds. Mental Status Exam: General Appearance: Patient appears to be stated age is alert, directable yet is suspicious/paranoid of film writer. Patient has marginal hygiene and grooming. Patient has hoody sweatshirt on with it covering most of her head. Behavior: Patient is seated without any agitated behavior. Paranoid and argumentative. Speech: Patient's speech is fluent and nonpressured. Mood/Affect: Mood is depressed and anxious, affect is congruent and constricted. Suicidality/Homicidality: Patient denies having any suicidal or homicidal ideation intent or plan. Perceptions: Patient denies any auditory or visual hallucinations. Though content/process: Patient is paranoid however is goal oriented. Patient shares multiple different delusions and was argumentative Memory and concentration: AOX3, grossly intact for the purposes of this session Judgment and insight: Poor Assessment: Major depressive disorder, with psychotic features Anxiety disorder unspecified Plan: -Patient continues to meet criteria for inpatient psychiatric admission for symptom stabilization and safety. Patient has signed adult voluntary form or refused to sign medication consent form. -Medications: Increase Seroquel to 200 mg at bedtime + 50 mg daily for paranoia/psychosis. Continue with Prozac 20 mg daily for mood which will need to be titrated up. -Currently awaiting LFTs. -When necessary Geodon and Ativan for agitation/aggression. -NRT - nicotine patch -SW on board for discharge planning. Patient is scheduled for court on 11/21/2019 at 9:30 AM. Patient to have a deferral date prior to this court date.
[2019-11-09] MEDS: QUEtiapine 50 MG TAB PO SCH ×3 (10:48→13:54)
[2019-11-09] MEDS: PANTOPRAZOLE 40 MG TABLET PO SCH (13:52)
[2019-11-09] MEDS: TOPIRAMATE 25 MG TAB PO SCH ×2 (13:53→21:07)
[2019-11-09] MEDS: ACETAMINOPHEN TAB 325 MG TAB PO PRN ×2 (13:55→21:10)
[2019-11-09] MEDS: QUEtiapine 200 MG TAB PO SCH (21:07)
[2019-11-10] MEDS: TOPIRAMATE 25 MG TAB PO SCH ×2 (09:17→20:43)
[2019-11-10] MEDS: PANTOPRAZOLE 40 MG TABLET PO SCH (09:17)
[2019-11-10] MEDS: QUEtiapine 50 MG TAB PO SCH (09:17)
[2019-11-10] MEDS: NICOTINE 14MG/24HR PATCH TRANSDERM SCH (09:17)
[2019-11-10] MEDS: FLUoxetine HCL 20 MG CAP PO SCH (09:17)
--- NOTE | 2019-11-10 15:15 | P.PN ---
Progress Note - Text Progress Note Date: 11/10/19 Subjective: Patient was seen today as a cross coverage for Dr. Marcos. The patient was evaluated, chart reviewed, case discussed with the treatment team. Patient reported good sleep, and according to chart review patient slept about 5 hours last night. Appetite was reported as "okay ". Patient has not been going to groups and other unit activities. The patient is compliant with her medications and denies any adverse reactions. Vision has been withdrawn and isolating herse lf. She is preoccupied with somatic symptoms and fixated on ear ache and her pain medication. Patient denies feeling suicidal and denies any thoughts to hurt others. She denies any hallucinations, paranoid ideation, and no delusions could be elicited. She presented very tired and sad, but she minimizes depression and he denies feeling hopeless. Patient denies manic or psychotic symptoms. She denies other physical symptoms besides what mentioned above. Objective: Vitals has been reviewed. Mental status examination; Appearance: The patient appears stated age, adequately groomed and dressed, no specific features. Gait/posture: Normal gait, Normal arm swinging: No abnormal movements. Attitude and behavior: engaged, cooperative, eye contact. Motor activity: Normal psychomotor activity Speech: Slow rate, low volume, not pressured Mood: Anxious, sad Affect: Restricted Thought form: goal-directed, linear, coherent. Thought content: Non-delusional, denies suicidal thoughts, denies homicidal thoughts, denies intentions or plans. Perception: Denies any auditory or visual hallucinations, but seems internally preoccupied Attention: No impairment. Orientation: Patient patient was fully oriented to time place person and situation. Insight: Patient has limited insight about her psychiatric disorder. Judgment: Patient has limited judgment about her psychiatric treatment. Assessment: Major depressive disorder, with psychotic features Anxiety disorder unspecified Plan: Continue inpatient level of care due to need for further stabilization on medications Precautions: Continue 15 minutes check for safety. Consider medical consultation if any acute medical issues arise. Discussed with nursing staff to call medical team to address pain medication and ear problem. Provide the patient individual, group therapy, substance use disorder counseling to give better insight and learn coping skills. Medications: Continue Seroquel 50 mg in the morning and 200 mg at bedtime for mood stabilization and to help with psychotic symptoms. Continue Prozac 20 mg daily for depression and anxiety. Patient declined increasing Prozac, and reports feeling sad because of her pain and physical symptoms. Continue when necessary medications. Discharge patient to OUTPATIENT services upon a stabilization
--- NOTE | 2019-11-10 20:14 | PN ---
PROGRESS NOTE DATE OF SERVICE: 11/10/2019 This 49-year-old woman admitted for psychiatric evaluation is complaining of fluid in the ear at this time. No chest pain. No palpitations. No fever. The patient also complaining of some nasal congestion. EXAM: Alert and oriented x3. Pulse is 83, blood pressure 120/64, respiration 16, pulse ox 98% on room. HEENT: Conjunctivae normal. Oral mucosa moist. NECK: No jugular venous distention. No lymph node enlargement. CARDIOVASCULAR: S1, S2. RESPIRATORY: Diminished breath sounds at the bases. No rhonchi, no crackles. ABDOMEN: Soft, nontender. LEGS: No swelling. NERVOUS SYSTEM: No focal deficits. Examination of the ears,no obvious inflammation noted. WBC 14.5. Otherwise, AST 73, ALT is 139. Cholesterol is 204. ASSESSMENT: 1. Upper respiratory infection. 2. Psychosis. 3. Chronic back pain. 4. Hypertension. 5. History of ovarian cyst. 6. Increased WBC. 7. Increased AST, ALT. RECOMMENDATIONS AND DISCUSSION: In this 49-year-old woman who presented with multiple medical issues, at this time I recommend to continue the current management and symptomatic treatment. Otherwise, I would recommend a course of decongestants, Sudafed and also ear drops. We will continue to monitor. Recommend close followup with primary physician in outpatient setting. MMODL / IJN: [id number] /
[2019-11-10] MEDS: PSEUDOEPHEDRINE 30 MG TAB PO SCH (20:42)
[2019-11-10] MEDS: QUEtiapine 200 MG TAB PO SCH (20:43)
[2019-11-10] MEDS: LORazepam 1 MG TAB PO PRN (22:25)
[2019-11-11] MEDS: PSEUDOEPHEDRINE 30 MG TAB PO SCH ×3 (02:01→16:56)
[2019-11-11] MEDS: TOPIRAMATE 25 MG TAB PO SCH ×2 (08:50→20:24)
[2019-11-11] MEDS: FLUoxetine HCL 20 MG CAP PO SCH (08:50)
[2019-11-11] MEDS: PANTOPRAZOLE 40 MG TABLET PO SCH (08:50)
[2019-11-11] MEDS: QUEtiapine 50 MG TAB PO SCH (08:50)
[2019-11-11] MEDS: NICOTINE 14MG/24HR PATCH TRANSDERM SCH (08:50)
--- NOTE | 2019-11-11 12:35 | P.PN ---
Progress Note - Text Progress Note Date: 11/11/19 Subjective: Patient was seen today as a cross coverage for Dr. Marcos. The patient was evaluated, chart reviewed, case discussed with the treatment team. Patient still isolating for most of the time and he stays at her room. She has been not engaged with very slow and delayed response to question. She reports is still feeling depressed, but denies suicidal ideation. She denies any mood swings, irritable mood, agitation, or homicidal ideation. She denies any auditory or visual hallucinations, paranoid ideation, and no delusions could be elicited. No manic symptoms have been reported or noticed. Patient reports good sleep last night and fair appetite. Patient is not much fixated on her somatic symptoms and she was seen by medical team yesterday who prescribed Sudafed. Objective: Vitals has been reviewed. Mental status examination; Appearance: The patient appears stated age, adequately groomed and dressed, no specific features. Gait/posture: Normal gait, Normal arm swinging: No abnormal movements. Attitude and behavior: Not fully engaged, superficially cooperative, intermittent eye contact. Motor activity: Slow psychomotor activity Speech: Slow rate, low volume, not pressured Mood: Anxious, sad Affect: Restricted Thought form: goal-directed, linear, coherent. Very low rate Thought content: Non-delusional, denies suicidal thoughts, denies homicidal thoughts, denies intentions or plans. Perception: Denies any auditory or visual hallucinations, but seems internally preoccupied Attention: No impairment. Orientation: Patient patient was fully oriented to time place person and situation. Insight: Patient has limited insight about her psychiatric disorder. Judgment: Patient has limited judgment about her psychiatric treatment. Assessment: Major depressive disorder, with psychotic features Anxiety disorder unspecified Plan: Continue inpatient level of care due to need for further stabilization on medications Precautions: Continue 15 minutes check for safety. Consider medical consultation if any acute medical issues arise. Discussed with nursing staff to call medical team to address pain medication and ear problem. Provide the patient individual, group therapy, substance use disorder counseling to give better insight and learn coping skills. Medications: Continue Seroquel 50 mg in the morning and 200 mg at bedtime for mood stabilization and to help with psychotic symptoms. Continue Prozac 20 mg daily for depression and anxiety. Patient declined increasing Prozac, and reports feeling sad because of her pain and physical symptoms. Continue when necessary medications. Discharge patient to OUTPATIENT services upon a stabilization
[2019-11-11] MEDS: CHOLECALCIFEROL 1,000 UNIT TAB PO SCH (13:03)
[2019-11-11] MEDS: QUEtiapine 200 MG TAB PO SCH (20:24)
[2019-11-12] MEDS: PSEUDOEPHEDRINE 30 MG TAB PO SCH ×3 (01:36→16:09)
[2019-11-12] MEDS: PANTOPRAZOLE 40 MG TABLET PO SCH (09:43)
[2019-11-12] MEDS: QUEtiapine 50 MG TAB PO SCH (09:44)
[2019-11-12] MEDS: TOPIRAMATE 25 MG TAB PO SCH ×2 (09:44→21:30)
[2019-11-12] MEDS: CHOLECALCIFEROL 1,000 UNIT TAB PO SCH (09:44)
[2019-11-12] MEDS: NICOTINE 14MG/24HR PATCH TRANSDERM SCH (09:44)
[2019-11-12] MEDS: FLUoxetine HCL 20 MG CAP PO SCH (09:44)
--- NOTE | 2019-11-12 12:24 | P.PN ---
Progress Note - Text Progress Note Date: 11/12/19 Interval History: Patient was seen sitting on her bed in her room talking with her roommate and was directable and agreeable to speak in the office. Patient continues to have a depressed affect and was argumentative with promotion writer during conversation. Patient continues to wear a hoodie which is covering her head. Patient offered no overnight complaints and states that her weekend went well. Patient was superficial with the promotion writer and had a poverty of content and was guarded. She spoke about feeling somewhat sedated during the day and likely related to her daytime Seroquel dose. Patient was agreeable to have this switched to nighttime to help her with sleep. She states that her landlord will be trying to pack up her things and "won't give them back" as she feels that she is going to get evicted from her place. Patient spoke about being "forced" by the army manager to sign papers and also spoke about the police writing false things on the petition to get her committed into the hospital. Patient continues to endorse paranoia and was preoccupied with discharge. She states that she was visited by her boyfriend over the weekend however does not elaborate on their interaction. Patient was argumentative and continues to have poor insight and judgment. Patient states that she is going to more groups and trying to participate. She claims that she slept approximately 5-6 hours last night and has fair energy. She claims that she has been eating wet. At this time patient denies any suicidal or homical ideations, intent or plan. Patient denies any auditory, visual hallucinations. Patient denies any side effects from the medications and has been compliant with meds. Mental Status Exam: General Appearance: Patient appears to be stated age is alert, directable yet is paranoid of promotion writer, police and her army manager. Patient has marginal hygiene and grooming. Patient has hoody sweatshirt on with it covering most of her head. Behavior: Patient is seated without any agitated behavior. Paranoid and argumentative. Speech: Patient's speech is fluent and nonpressured. Mood/Affect: Mood is mildly improving, affect is congruent and constricted. Suicidality/Homicidality: Patient denies having any suicidal or homicidal ideation intent or plan. Perceptions: Patient denies any auditory or visual hallucinations. Though content/process: Patient is goal oriented. Patient endorses paranoia and was argumentative. Memory and concentration: AOX3, grossly intact for the purposes of this session Judgment and insight: Poor, mildly improving Assessment: Major depressive disorder, with psychotic features Anxiety disorder unspecified Plan: -Patient continues to meet criteria for inpatient psychiatric admission for symptom stabilization and safety. Patient has signed adult voluntary form or refused to sign medication consent form. -Medications: Increased Seroquel to 250 mg at bedtime for paranoia/psychosis and discontinued morning dose due to daytime sedation. Will consider switching patient onto Risperdal if patient continues to be paranoid. Increased Prozac 40 mg daily for mood which will need to be titrated up. -When necessary Geodon and Ativan for agitation/aggression. -NRT - nicotine patch -SW on board for discharge planning. Patient signed deferral for treatment.
[2019-11-12] MEDS ORDERED: QUEtiapine 100 MG TAB PO SCH (21:00)
[2019-11-13] MEDS: LORazepam 1 MG TAB PO PRN (02:28)
[2019-11-13] MEDS: ACETAMINOPHEN TAB 325 MG TAB PO PRN (02:29)
[2019-11-13] MEDS: PANTOPRAZOLE 40 MG TABLET PO SCH (08:53)
[2019-11-13] MEDS: NICOTINE 14MG/24HR PATCH TRANSDERM SCH (08:53)
[2019-11-13] MEDS: CHOLECALCIFEROL 1,000 UNIT TAB PO SCH (08:53)
[2019-11-13] MEDS: FLUoxetine HCL 20 MG CAP PO SCH (08:54)
[2019-11-13] MEDS: TOPIRAMATE 25 MG TAB PO SCH ×2 (08:54→21:30)
--- NOTE | 2019-11-13 11:45 | P.PN ---
Progress Note - Text Progress Note Date: 11/13/19 Interval History: Patient was seen sitting in and participating in group and was directable and agreeable to speak in the office. Patient appeared to have a mildly improved affect and was more communicative with narrative writer today. Patient was mildly more directable during conversation. She claimed that she had a poor night last night stating that she has restless leg symptoms for several years now and needed and Ativan last night to help her fall asleep. Patient was requesting any medication that could help her with that. She states that her mood has been gradually improving and she spoke about wanting to spend time with her family. She was less preoccupied with court and her city attorney today. She states that her landlord is holding her things at the apartment and she claims that she wants to move out to another apartment which will be a better fit for her. Patient states that she is trying to go to groups and participate as best as she can. She remained somewhat isolative in between groups and in her room and continues to wear a hooded sweatshirt over her head. Patient claims to have fair energy. She claims that she has been eating well on the unit. At this time patient denies any suicidal or homical ideations, intent or plan. Patient denies any auditory, visual hallucinations. Patient claims that she feels more energetic during the day now that the morning dose of Seroquel is discontinued. Patient has been compliant with meds. Mental Status Exam: General Appearance: Patient appears to be stated age is alert, and more directable today. Patient is less paranoid of narrative writer, police and her applied anthropologist. Patient has marginal hygiene and grooming. Patient has hoody sweatshirt on with it covering most of her head. Behavior: Patient is seated without any agitated behavior. Less Paranoid and argumentative. Speech: Patient's speech is fluent and nonpressured. Mood/Affect: Mood is mildly improving, affect is congruent and constricted. Suicidality/Homicidality: Patient denies having any suicidal or homicidal ideation intent or plan. Perceptions: Patient denies any auditory or visual hallucinations. Though content/process: Patient is goal oriented. Patient is less paranoia and was argumentative. Memory and concentration: AOX3, grossly intact for the purposes of this session Judgment and insight: Poor, mildly improving Assessment: Major depressive disorder, with psychotic features Anxiety disorder unspecified Plan: -Patient continues to meet criteria for inpatient psychiatric admission for symptom stabilization and safety. Patient has signed adult voluntary form or refused to sign medication consent form. -Medications: Increased Seroquel to 300 mg at bedtime for paranoia/psychosis and discontinued morning dose due to daytime sedation. Continue with Prozac 40 mg daily for mood which will likely need to be titrated up. I did Requip 0.25mg hs for RLS symptoms -When necessary Geodon and Ativan for agitation/aggression. -NRT - nicotine patch -SW on board for discharge planning. Patient signed deferral for treatment. Likely discharge in 2-3 days.
[2019-11-13 13:41] VITALS: BMI 27.1
[2019-11-13] MEDS: QUEtiapine 100 MG TAB PO SCH (21:29)
[2019-11-13] MEDS: PSEUDOEPHEDRINE 30 MG TAB PO PRN (21:31)
[2019-11-14 06:58] VITALS: RESP 16
[2019-11-14] MEDS: PANTOPRAZOLE 40 MG TABLET PO SCH (09:11)
[2019-11-14] MEDS: FLUoxetine HCL 20 MG CAP PO SCH (09:12)
[2019-11-14] MEDS: TOPIRAMATE 25 MG TAB PO SCH ×2 (09:12→20:20)
[2019-11-14] MEDS: CHOLECALCIFEROL 1,000 UNIT TAB PO SCH (09:12)
[2019-11-14] MEDS: NICOTINE 14MG/24HR PATCH TRANSDERM SCH (09:12)
[2019-11-14] MEDS: ACETAMINOPHEN TAB 325 MG TAB PO PRN (09:13)
[2019-11-14] MEDS ORDERED: IBUPROFEN 600 MG TAB PO PRN (10:22)
--- NOTE | 2019-11-14 10:33 | P.PN ---
Progress Note - Text Progress Note Date: 11/14/19 Interval History: Patient was seen wandering the hallways after attending group and was directable and agreeable to speak in the office. Patient appeared to be in mild distress secondary to her chronic back pain. Patient claims that she is trying to walk around and stay active as she feels that she is not on the correct pain medications on the unit. Patient claims that she slept better last night except for her pain. She states that the ropinirole helps her with her restless leg symptoms and she was thankful for it. Patient claims that she did not need Ativan for sleep last night which was what she was attempting to avoid. Patient appeared to be less paranoid today and was less argumentative. She endorses gradually improving mood and anxiety and is agreeable to have her Prozac increased tomorrow. Patient claims that she has been going to some groups and try to participate as best she can. She was noted to be wearing a change of clothes and not in a hooded sweatshirt any longer. She claims to have fair energy and fair appetite. At this time patient denies any suicidal or homical ideations, intent or plan. Patient denies any auditory, visual hallucinations. Mental Status Exam: General Appearance: Patient appears to be stated age is alert, and more directable. Patient is less paranoid today. Patient has improving hygiene and grooming. Patient is wearing regular street clothes Behavior: Patient is seated without any agitated behavior. Less Paranoid and argumentative today. Speech: Patient's speech is fluent and nonpressured. Mood/Affect: Mood is mildly improving, affect is congruent and constricted. Suicidality/Homicidality: Patient denies having any suicidal or homicidal ideation intent or plan. Perceptions: Patient denies any auditory or visual hallucinations. Though content/process: Patient is goal oriented. Patient is less paranoia and was argumentative. Focused on discharge. Memory and concentration: AOX3, grossly intact for the purposes of this session Judgment and insight: mildly improving Assessment: Major depressive disorder, with psychotic features Anxiety disorder unspecified Plan: -Patient continues to meet criteria for inpatient psychiatric admission for symptom stabilization and safety. Patient has signed adult voluntary form and refused to sign medication consent form. Patient signed referral for treatment. -Medications: Continue with Seroquel to 300 mg at bedtime for paranoia/psychosis and discontinued morning dose due to daytime sedation. Increased Prozac 60 mg daily for mood which will likely need to be titrated up. Continue with Requip 0.25mg qhs for RLS symptoms -Tylenol and ibuprofen when necessary for chronic back pain. -When necessary Geodon and Ativan for agitation/aggression. -NRT - nicotine patch -SW on board for discharge planning. Likely discharge tomorrow back home. Patient follows up with [facility].
[2019-11-14] MEDS: PSEUDOEPHEDRINE 30 MG TAB PO PRN (20:19)
[2019-11-14] MEDS: QUEtiapine 100 MG TAB PO SCH (20:20)
[2019-11-15 07:01] VITALS: BP 122/63; PULSE 74; TEMP 98.3
[2019-11-15] MEDS: PANTOPRAZOLE 40 MG TABLET PO SCH (08:45)
[2019-11-15] MEDS: CHOLECALCIFEROL 1,000 UNIT TAB PO SCH (08:45)
[2019-11-15] MEDS: NICOTINE 14MG/24HR PATCH TRANSDERM SCH (08:45)
[2019-11-15] MEDS: TOPIRAMATE 25 MG TAB PO SCH (08:46)
[2019-11-15] MEDS ORDERED: FLUoxetine HCL 20 MG CAP PO SCH (09:00)
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
== END 2019-11-15 11:25 | disposition home or self-care (01) | DRG 885 ==
LOC: EC 20:18 → 3MHU 11-05 03:27
PROVIDERS: ADMIT Psychiatry & Neurology Psychiatry; ATTEND Psychiatry & Neurology Psychiatry
DX: F32.3 Major depressive disorder, single episode, severe with psychotic features (principal); F41.9 Anxiety disorder, unspecified; F60.89 Other specific personality disorders; F10.10 Alcohol abuse, uncomplicated; F17.210 Nicotine dependence, cigarettes, uncomplicated; G25.81 Restless legs syndrome; G47.00 Insomnia, unspecified; G89.29 Other chronic pain; M54.9 Dorsalgia, unspecified; I10 Essential (primary) hypertension; J06.9 Acute upper respiratory infection, unspecified; Y04.0XXA Assault by unarmed brawl or fight, initial encounter; Z79.899 Other long term (current) drug therapy; Z81.8 Family history of other mental and behavioral disorders; Z71.41 Alcohol abuse counseling and surveillance of alcoholic
CPT/HCPCS: 36415; 80048; 80061; 80076; 80164; 80178; 80306; 80320; 80329; 81003; 83036; 83520; 83735; 84100; 84443; 85025; 96361; 96374; 99285

== ENCOUNTER 2021-06-19 16:02 | Observation (INO) | payer OTHER ==
[2021-06-19] MEDS ORDERED: ACETAMINOPHEN TAB 325 MG TAB PO STA (17:55)
[2021-06-19] MEDS ORDERED: SODIUM CHLORIDE 0.9% 1,000 ML IV ONE (18:33)
[2021-06-19] MEDS ORDERED: diphenhydrAMINE 50 MG/ML 1 ML VIAL IVP STA (18:33)
[2021-06-19] MEDS ORDERED: KETOROLAC 15 MG/ML 1 ML VIAL IVP STA (18:34)
[2021-06-19 18:39] LABS: Glucose,Whole Blood 65 mg/dL (75-99)
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
[2021-06-19 18:54] LABS: Basophils % (A) 0 %; Eosinophils # (A) 0.2 k/uL (0-0.7); Eosinophils % (A) 2 %; HCT 32.7 % (34.0-46.0); HGB 11.2 gm/dL (11.4-16.0); Lymphocytes # (A) 1.9 k/uL (1.0-4.8); Lymphocytes % (A) 25 %; MCH 31.5 pg (25.0-35.0); MCHC 34.1 g/dL (31.0-37.0); MCV 92.2 fL (80.0-100.0); Mean Platelet Volume 7.1; Monocytes # (A) 0.4 k/uL (0-1.0); Monocytes % (A) 5 %; Neutrophils # (A) 5.1 k/uL (1.3-7.7); Neutrophils % (A) 67 %; Platelet Count 528 k/uL (150-450); RBC 3.55 m/uL (3.80-5.40); RDW 12.7 % (11.5-15.5); WBC 7.7 k/uL (3.8-10.6)
[2021-06-19 19:08] LABS: ALT 38 U/L (4-34); AST 77 U/L (14-36); African American GFR (CKD) >90 (>60 ml/min/1.73 sqM); Albumin 4.3 g/dL (3.5-5.0); Alcohol <10 mg/dL; Alkaline Phosphatase 79 U/L (38-126); Anion Gap 14 mmol/L; Blood Urea Nitrogen 15 mg/dL (7-17); Calcium 9.3 mg/dL (8.4-10.2); Carbon Dioxide 25 mmol/L (22-30); Chloride 98 mmol/L (98-107); Glucose 108 mg/dL (74-99); Non-African American GFR(CKD) >90 (>60 ml/min/1.73 sqM); Sodium 137 mmol/L (137-145); Total Bilirubin 0.5 mg/dL (0.2-1.3); Total Protein 6.8 g/dL (6.3-8.2)
[2021-06-19 19:10] LABS: Potassium 2.6 mmol/L (3.5-5.1)
--- NOTE | 2021-06-19 19:19 | CT ---
EXAMINATION TYPE: CT brain wo con DATE OF EXAM: 06/19/2021 COMPARISON: 07/25/2016 HISTORY: ams CT DLP: 1099.4 mGycm Automated exposure control for dose reduction was used. Ventricles have normal size. There is no mass effect nor midline shift. There is no sign of intracran ial hemorrhage. The calvarium is intact. Skull base appears intact. IMPRESSION: Normal unenhanced head CT scan. No change.
[2021-06-19] MEDS ORDERED: POTASSIUM CHLORIDE ER 20 MEQ TAB.ER PO STA (19:34)
[2021-06-19] MEDS ORDERED: CLINDAMYCIN 600 MG in DEXTROSE 5% IN WATER 50 ML IVPB STA ×2 (19:44)
[2021-06-19] MEDS ORDERED: SODIUM CHLORIDE 0.9% 1,000 ML IV SCH (19:45)
[2021-06-19] MEDS ORDERED: NALOXONE 0.4 MG/ML 1 ML VIAL IV PRN (19:45)
[2021-06-19] MEDS ORDERED: ACETAMINOPHEN TAB 325 MG TAB PO PRN (19:45)
[2021-06-19 20:56] LABS: Appearance,Urine Cloudy (Clear); Bacteria,Urine Rare /hpf; Bilirubin,Urine 1+ (Negative); Blood,Urine Negative (Negative); Color,Urine Yellow; Glucose,Urine (UA) Negative (Negative); Hyaline Casts,Urine 30 /lpf (0-2); Ketones,Urine 2+ (Negative); Leukocyte Esterase,Urine Moderate (Negative); Mucus,Urine Many /hpf; Nitrite,Urine Negative (Negative); PH, Urine 5.5 (5.0-8.0); Protein,Urine 1+ (Negative); RBC,Urine 1 /hpf (0-5); Specific Gravity,Urine 1.024 (1.001-1.035); Squamous Epithelial Cell,Urine 6 /hpf (0-4); WBC,Urine 14 /hpf (0-5); Waxy Casts,Urine 4 /lpf (0)
[2021-06-19 21:01] LABS: Amphetamine Screen,Urine Detected (NotDetected); Barbiturate Screen,Urine Not Detected (NotDetected); Benzodiazepines Screen,Urine Not Detected (NotDetected); Cocaine Screen,Urine Not Detected (NotDetected); Methadone Screen, Urine Not Detected (NotDetected); Opiate Screen,Urine Not Detected (NotDetected); Oxycodone Screen, Urine Not Detected (NotDetected); Phencyclidine Screen,Urine Not Detected (NotDetected); Tricyclic Antidepressant,Urine Not Detected (NotDetected); Urn Cannabinoid Scrn Not Detected (NotDetected)
[2021-06-19] MEDS ORDERED: LORazepam 2 MG/ML INJ IV PRN (23:02)
[2021-06-20 10:13] VITALS: BP 123/80; PULSE 72; RESP 18; TEMP 98.5
[2021-06-20] MEDS ORDERED: DULoxetine HCL 60 MG CAPSULE.DR PO SCH (10:45)
[2021-06-20] MEDS ORDERED: SILDENAFIL 20 MG TAB PO SCH (10:45)
[2021-06-20] MEDS ORDERED: POTASSIUM CHLORIDE ER 20 MEQ TAB.ER PO STA (12:24)
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
--- NOTE | 2021-06-20 12:47 | P.DS ---
Providers Date of admission: 06/19/21 19:42 Attending physician: Teri Tapia MD Consults: 06/19/21 19:46 Consult Physician Urgent Consulting Provider: Mariaa Patricia Consult Reason/Comments: Altered mental status psychosis Do you want consulting provider notified?: Yes Primary care physician: Stated None Hospital Course: Please abdomen HPI for further details Plan - Discharge Summary Discharge Rx Participant: Yes New Discharge Prescriptions: New HYDROcodone/APAP 7.5-325MG [[place] 7.5-325] 1 tab PO Q6HR PRN 3 Days #12 tab PRN Reason: Pain Cephalexin [Keflex] 500 mg PO Q8HR 5 Days #15 cap Pregabalin [Lyrica] 75 mg PO BID 10 Days #20 cap Doxycycline [Vibramycin] 100 mg PO BID 5 Days #10 capsule Nicotine 21Mg/24Hr Patch [Habitrol] 1 each TRANSDERM DAILY #14 patch Continue QUEtiapine FUMARATE [SEROquel] 300 mg PO HS 28 Days tab buPROPion XL [Wellbutrin XL] 150 mg PO DAILY rOPINIRole HCL [Requip] 1 mg PO HS Cholecalciferol (Vitamin D3) [Vitamin D3 (125 MCG = 5,000 IU)] 125 mcg PO DAILY DULoxetine HCL [Cymbalta] 60 mg PO BID Sildenafil Citrate 20 mg PO TID #60 tab Discharge Medication List QUEtiapine FUMARATE [SEROquel] 300 mg PO HS 28 Days tab 11/15/19 [Rx] Cholecalciferol (Vitamin D3) [Vitamin D3 (125 MCG = 5,000 IU)] 125 mcg PO DAILY 06/19/21 [History] DULoxetine HCL [Cymbalta] 60 mg PO BID 06/19/21 [History] buPROPion XL [Wellbutrin XL] 150 mg PO DAILY 06/19/21 [History] Cephalexin [Keflex] 500 mg PO Q8HR 5 Days #15 cap 06/20/21 [Rx] Doxycycline [Vibramycin] 100 mg PO BID 5 Days #10 capsule 06/20/21 [Rx] HYDROcodone/APAP 7.5-325MG [[place] 7.5-325] 1 tab PO Q6HR PRN 3 Days #12 tab 06/20/21 [Rx] Nicotine 21Mg/24Hr Patch [Habitrol] 1 each TRANSDERM DAILY #14 patch 06/20/21 [Rx] Pregabalin [Lyrica] 75 mg PO BID 10 Days #20 cap 06/20/21 [Rx] Sildenafil Citrate 20 mg PO TID #60 tab 06/20/21 [Rx] rOPINIRole HCL [Requip] 1 mg PO HS 06/20/21 [History] Follow up Appointment(s)/Referral(s): Ni Jansen MD [REFERRING] - 1 Week Ambulatory/Diagnostic Orders: Basic Metabolic Panel [LAB.AMB] Time Frame: 3 Days, Location: None Selected Discharge Disposition: HOME SELF-CARE
[2021-06-20] MEDS ORDERED: QUEtiapine 100 MG TAB PO SCH (21:00)
[2021-06-21] MEDS ORDERED: CHOLECALCIFEROL 25 MCG (1000 IU) TABLET PO SCH (09:00)
[2021-06-21] MEDS ORDERED: buPROPion XL 150 MG TAB.ER.24H PO SCH (09:00)
== END 2021-06-20 14:42 | disposition home or self-care (01) ==
LOC: EC 16:02 → 6NMEDSUR 19:42
PROVIDERS: ADMIT Internal Medicine; ATTEND Internal Medicine
DX: L03.115 Cellulitis of right lower limb (principal); B95.61 Methicillin susceptible Staphylococcus aureus infection as the cause of diseases classified elsewhere; B95.62 Methicillin resistant Staphylococcus aureus infection as the cause of diseases classified elsewhere; F29 Unspecified psychosis not due to a substance or known physiological condition; I73.9 Peripheral vascular disease, unspecified; I10 Essential (primary) hypertension; G62.9 Polyneuropathy, unspecified; E87.6 Hypokalemia; F17.210 Nicotine dependence, cigarettes, uncomplicated; I67.9 Cerebrovascular disease, unspecified; F32.9 Major depressive disorder, single episode, unspecified; G89.29 Other chronic pain; M54.9 Dorsalgia, unspecified; Z79.899 Other long term (current) drug therapy; Z88.9 Allergy status to unspecified drugs, medicaments and biological substances; N83.209 Unspecified ovarian cyst, unspecified side; Z87.440 Personal history of urinary (tract) infections; Z86.59 Personal history of other mental and behavioral disorders; Z87.19 Personal history of other diseases of the digestive system; Z71.6 Tobacco abuse counseling
CPT/HCPCS: 96375 ×2; 96361; 96365; 99284; 36415; 93005; 80053; 84132; 84484; 85025; 81001; 87040; 80306; 87086; 70450; G0378 ×2; G0480; J2060; J1200; J1885; 80320

== ENCOUNTER 2021-09-17 15:13 | Emergency (ER) | payer OTHER ==
[2021-09-17 15:46] VITALS: BP 151/99; PULSE 103; RESP 20; TEMP 97.6
[2021-09-17 16:44] LABS: Glucose,Whole Blood 84 mg/dL (75-99)
[2021-09-17 16:54] LABS: Basophils % (A) 0 %; Eosinophils # (A) 0.1 k/uL (0-0.7); Eosinophils % (A) 2 %; HCT 37.5 % (34.0-46.0); HGB 12.2 gm/dL (11.4-16.0); Lymphocytes # (A) 2.1 k/uL (1.0-4.8); Lymphocytes % (A) 31 %; MCH 30.6 pg (25.0-35.0); MCHC 32.5 g/dL (31.0-37.0); MCV 94.3 fL (80.0-100.0); Mean Platelet Volume 7.7; Monocytes # (A) 0.4 k/uL (0-1.0); Monocytes % (A) 7 %; Neutrophils % (A) 59 %; Platelet Count 398 k/uL (150-450); RBC 3.98 m/uL (3.80-5.40); RDW 12.6 % (11.5-15.5); WBC 6.8 k/uL (3.8-10.6)
[2021-09-17 17:03] LABS: ALT 23 U/L (4-34); AST 25 U/L (14-36); African American GFR (CKD) >90 (>60 ml/min/1.73 sqM); Albumin 4.4 g/dL (3.5-5.0); Alcohol <10 mg/dL; Alkaline Phosphatase 82 U/L (38-126); Anion Gap 10 mmol/L; Blood Urea Nitrogen 15 mg/dL (7-17); Calcium 9.9 mg/dL (8.4-10.2); Carbon Dioxide 24 mmol/L (22-30); Chloride 104 mmol/L (98-107); Glucose 94 mg/dL (74-99); Non-African American GFR(CKD) >90 (>60 ml/min/1.73 sqM); Potassium 3.4 mmol/L (3.5-5.1); Sodium 138 mmol/L (137-145); Total Bilirubin 0.7 mg/dL (0.2-1.3); Total Protein 7.1 g/dL (6.3-8.2)
[2021-09-17 17:04] LABS: INR 1.1 (<1.2); Partial Thromboplastin Time 25.6 sec (22.0-30.0); Prothrombin Time 11.2 sec (9.0-12.0)
[2021-09-17 17:35] LABS: Appearance,Urine Cloudy (Clear); Bacteria,Urine Moderate /hpf; Bilirubin,Urine Negative (Negative); Blood,Urine Trace (Negative); Color,Urine Yellow; Glucose,Urine (UA) Negative (Negative); Hyaline Casts,Urine 9 /lpf (0-2); Ketones,Urine 2+ (Negative); Leukocyte Esterase,Urine Small (Negative); Mucus,Urine Many /hpf; Nitrite,Urine Negative (Negative); Protein,Urine 1+ (Negative); RBC,Urine 3 /hpf (0-5); Specific Gravity,Urine 1.026 (1.001-1.035); Squamous Epithelial Cell,Urine 7 /hpf (0-4); WBC,Urine 8 /hpf (0-5)
[2021-09-17 17:39] LABS: Amphetamine Screen,Urine Detected (NotDetected); Barbiturate Screen,Urine Not Detected (NotDetected); Benzodiazepines Screen,Urine Not Detected (NotDetected); Cocaine Screen,Urine Not Detected (NotDetected); Methadone Screen, Urine Not Detected (NotDetected); Opiate Screen,Urine Not Detected (NotDetected); Oxycodone Screen, Urine Not Detected (NotDetected); Phencyclidine Screen,Urine Not Detected (NotDetected); Tricyclic Antidepressant,Urine Not Detected (NotDetected); Urn Cannabinoid Scrn Not Detected (NotDetected)
--- NOTE | 2021-09-17 17:50 | CT ---
EXAMINATION: CT brain wo con DATE AND TIME: 09/17/2021 5:32 PM CLINICAL INDICATION: PHH; Altered mental status; headaches TECHNIQUE: Standard departmental protocol.; 1099.4 mGy-cm COMPARISON: CT 06/19/2021 FINDINGS: The calvarium is intact. There is no intracranial hemorrhage. There is no intracranial mass or mass effect. No definite new intra-axial or extra-axial attenuation defect. The paranasal sinuses, middle ear cavities, and mastoid sinus air cells are clear. The orbits are unremarkable. IMPRESSION: No acute CT process.
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
[2021-09-17] MEDS ORDERED: cefTRIAXone IN SWFI 1,000 MG/10 ML SYRINGE IVP STA (18:45)
[2021-09-17] MEDS ORDERED: NALOXONE 0.4 MG/ML 1 ML VIAL IV PRN (18:46)
[2021-09-17] MEDS ORDERED: LORazepam 2 MG/ML INJ IV PRN (18:48)
[2021-09-17] MEDS ORDERED: DIVALPROEX 500 MG TABLET.DR PO STA (20:03)
== END 2021-09-17 20:30 | disposition home or self-care (01) ==
LOC: EC 15:13 → 6NMEDSUR 18:46 → UNDOADMOB 18:46 → EC 20:30 → 6NMEDSUR 21:08
DX: F15.10 Other stimulant abuse, uncomplicated (principal); I10 Essential (primary) hypertension; R41.82 Altered mental status, unspecified; F17.200 Nicotine dependence, unspecified, uncomplicated; Z87.820 Personal history of traumatic brain injury; Z88.0 Allergy status to penicillin
CPT/HCPCS: 99285; 96374; 36415; 93005; 80164; 80053; 84484; 85025; 85610; 85730; 81001; 80306; 80320; 70450; J0696

== ENCOUNTER 2021-09-19 09:48 | Emergency (ER) | payer OTHER ==
[2021-09-19 09:56] VITALS: BP 138/87; PULSE 98; RESP 18; TEMP 98.8
[2021-09-19] MEDS ORDERED: SODIUM CHLORIDE 0.9% 500 ML 500 ML IV ONE (10:02)
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
== END 2021-09-19 10:56 | disposition left against medical advice (07) ==
LOC: EC 09:48
DX: R41.82 Altered mental status, unspecified (principal); F17.200 Nicotine dependence, unspecified, uncomplicated; I10 Essential (primary) hypertension; Z88.8 Allergy status to other drugs, medicaments and biological substances; Z79.899 Other long term (current) drug therapy
CPT/HCPCS: 99284

== ENCOUNTER 2021-09-19 13:30 | Inpatient (IN) | payer OTHER ==
[2021-09-19] MEDS ORDERED: SODIUM CHLORIDE 0.9% 500 ML 500 ML IV ONE (13:34)
[2021-09-19] MEDS ORDERED: LORazepam 2 MG/ML INJ IV STA (13:45)
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
[2021-09-19 14:30] LABS: Basophils % (A) 0 %; Eosinophils # (A) 0.1 k/uL (0-0.7); Eosinophils % (A) 1 %; HCT 40.9 % (34.0-46.0); HGB 13.1 gm/dL (11.4-16.0); Lymphocytes # (A) 2.7 k/uL (1.0-4.8); Lymphocytes % (A) 21 %; MCH 30.3 pg (25.0-35.0); MCHC 32.1 g/dL (31.0-37.0); MCV 94.1 fL (80.0-100.0); Mean Platelet Volume 7.1; Monocytes # (A) 0.4 k/uL (0-1.0); Monocytes % (A) 3 %; Neutrophils # (A) 9.6 k/uL (1.3-7.7); Neutrophils % (A) 74 %; Platelet Count 431 k/uL (150-450); RBC 4.34 m/uL (3.80-5.40); RDW 12.6 % (11.5-15.5); WBC 12.9 k/uL (3.8-10.6)
[2021-09-19 14:37] LABS: ALT 26 U/L (4-34); AST 36 U/L (14-36); African American GFR (CKD) >90 (>60 ml/min/1.73 sqM); Albumin 4.8 g/dL (3.5-5.0); Alcohol <10 mg/dL; Alkaline Phosphatase 89 U/L (38-126); Anion Gap 18 mmol/L; Blood Urea Nitrogen 14 mg/dL (7-17); Calcium 10.3 mg/dL (8.4-10.2); Carbon Dioxide 18 mmol/L (22-30); Chloride 105 mmol/L (98-107); Glucose 72 mg/dL (74-99); Magnesium 1.6 mg/dL (1.6-2.3); Non-African American GFR(CKD) >90 (>60 ml/min/1.73 sqM); Sodium 141 mmol/L (137-145); Total Bilirubin 0.8 mg/dL (0.2-1.3); Total Protein 7.6 g/dL (6.3-8.2)
[2021-09-19 14:42] LABS: Potassium 3.8 mmol/L (3.5-5.1)
[2021-09-19 14:43] LABS: Valproic Acid (Depakene) 12.7 ug/mL
[2021-09-19 15:09] LABS: Appearance,Urine Clear (Clear); Bacteria,Urine Occasional /hpf; Bilirubin,Urine Negative (Negative); Blood,Urine Negative (Negative); Color,Urine Yellow; Glucose,Urine (UA) Negative (Negative); Ketones,Urine 1+ (Negative); Leukocyte Esterase,Urine Negative (Negative); Mucus,Urine Rare /hpf; Nitrite,Urine Negative (Negative); Protein,Urine 1+ (Negative); RBC,Urine 2 /hpf (0-5); Specific Gravity,Urine 1.025 (1.001-1.035); Squamous Epithelial Cell,Urine <1 /hpf (0-4); Urobilinogen,Urine <2.0 mg/dL (<2.0); WBC,Urine 6 /hpf (0-5)
[2021-09-19 15:13] LABS: Cocaine Screen,Urine Not Detected (NotDetected); Phencyclidine Screen,Urine Not Detected (NotDetected); Urn Cannabinoid Scrn Not Detected (NotDetected)
[2021-09-19 15:14] LABS: Amphetamine Screen,Urine Detected (NotDetected); Barbiturate Screen,Urine Not Detected (NotDetected); Benzodiazepines Screen,Urine Not Detected (NotDetected); Methadone Screen, Urine Not Detected (NotDetected); Opiate Screen,Urine Not Detected (NotDetected); Oxycodone Screen, Urine Not Detected (NotDetected); Tricyclic Antidepressant,Urine Not Detected (NotDetected)
--- NOTE | 2021-09-19 15:20 | XR ---
EXAMINATION TYPE: XR chest 1V portable DATE OF EXAM: 09/19/2021 COMPARISON: 07/25/2016 HISTORY: Altered mental status TECHNIQUE: Single view FINDINGS: Heart and mediastinum are normal. Lungs are clear. Diaphragm is normal. Bony thorax is inta ct. There are chest leads. IMPRESSION: No active cardiopulmonary disease. No change.
[2021-09-19 15:50] LABS: INR 1.1 (<1.2); Partial Thromboplastin Time 24.3 sec (22.0-30.0); Prothrombin Time 11.2 sec (9.0-12.0)
--- NOTE | 2021-09-19 16:01 | CT ---
EXAMINATION TYPE: CT brain wo con DATE OF EXAM: 09/19/2021 COMPARISON: 09/17/2021 HISTORY: AMS, confusion CT DLP: 1118.4 mGycm Automated exposure control for dose reduction was used. Images obtained of the brain with no contrast. Ventricles and sulci appear normal. There is no mass effect nor midline shift. There is no sign of in tracranial hemorrhage. Calvarium is intact. There is normal aeration of the mastoid sinuses. Skull ba se is intact. IMPRESSION: Negative unenhanced head CT scan. No change.
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
[2021-09-19] MEDS ORDERED: NALOXONE 0.4 MG/ML 1 ML VIAL IV PRN (18:13)
[2021-09-19] MEDS ORDERED: IBUPROFEN 400 MG TAB PO PRN (18:14)
[2021-09-19] MEDS ORDERED: ACETAMINOPHEN TAB 325 MG TAB PO PRN (18:14)
[2021-09-19] MEDS ORDERED: BACLOFEN 10 MG TAB PO PRN (18:15)
[2021-09-19] MEDS ORDERED: NICOTINE 14MG/24HR PATCH TRANSDERM PRN (18:15)
[2021-09-19] MEDS: hydrALAZINE HCL 25 MG TAB PO SCH (19:14)
[2021-09-19] MEDS ORDERED: LORazepam 2 MG/ML INJ IV PRN (20:09)
[2021-09-19] MEDS ORDERED: QUEtiapine 100 MG TAB PO SCH (21:00)
[2021-09-19] MEDS: SILDENAFIL 20 MG TAB PO SCH (22:51)
[2021-09-19] MEDS: DULoxetine HCL 60 MG CAPSULE.DR PO SCH (22:51)
[2021-09-19] MEDS: DIVALPROEX SPRINKLE 125 MG CAP.SPRINK PO SCH (22:52)
[2021-09-19] MEDS: SODIUM CHLORIDE 0.9% 1,000 ML IV SCH (23:00)
[2021-09-20] MEDS: hydrALAZINE HCL 25 MG TAB PO SCH ×3 (01:34→14:57)
[2021-09-20] MEDS: SODIUM CHLORIDE 0.9% 1,000 ML IV SCH ×3 (01:43→19:52)
[2021-09-20 07:11] LABS: Basophils % (A) 0 %; Eosinophils # (A) 0.1 k/uL (0-0.7); Eosinophils % (A) 3 %; HCT 32.8 % (34.0-46.0); HGB 10.7 gm/dL (11.4-16.0); Lymphocytes # (A) 2.2 k/uL (1.0-4.8); Lymphocytes % (A) 50 %; MCH 31.3 pg (25.0-35.0); MCHC 32.7 g/dL (31.0-37.0); MCV 95.7 fL (80.0-100.0); Monocytes # (A) 0.2 k/uL (0-1.0); Monocytes % (A) 4 %; Neutrophils # (A) 1.8 k/uL (1.3-7.7); Neutrophils % (A) 41 %; Platelet Count 308 k/uL (150-450); RBC 3.43 m/uL (3.80-5.40); RDW 12.7 % (11.5-15.5); WBC 4.3 k/uL (3.8-10.6)
[2021-09-20] MEDS: DULoxetine HCL 60 MG CAPSULE.DR PO SCH ×2 (08:30→19:52)
[2021-09-20] MEDS: CHOLECALCIFEROL 25 MCG (1000 IU) TABLET PO SCH (08:30)
[2021-09-20] MEDS: buPROPion XL 150 MG TAB.ER.24H PO SCH (08:31)
[2021-09-20] MEDS: DIVALPROEX SPRINKLE 125 MG CAP.SPRINK PO SCH (08:31)
[2021-09-20] MEDS: SILDENAFIL 20 MG TAB PO SCH ×3 (08:32→19:52)
[2021-09-20] MEDS ORDERED: ASPIRIN 325 MG TAB PO STA (09:27)
[2021-09-20] MEDS ORDERED: LABETALOL 5 MG/ML VIAL MDV IVP PRN (09:54)
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
[2021-09-20] MEDS: ATORVASTATIN 40 MG TAB PO SCH (10:13)
--- NOTE | 2021-09-20 10:51 | CT ---
EXAMINATION TYPE: CT brain wo con DATE OF EXAM: 09/20/2021 COMPARISON: 09/19/2021 HISTORY: CVA CT DLP: 1036 mGycm Automated exposure control for dose reduction was used. FINDINGS: The ventricles, basal cisterns and sulci over the convexities are within normal limits and there is n o mass effect or shift of midline structures. No abnormal density is seen throughout the brain parenchyma and there is no acute intra or extra-axia l hemorrhage. Posterior fossa is grossly normal. Intraorbital contents are normal and symmetric. Visualized paranasal sinuses are well aerated IMPRESSION: NO SIGNIFICANT ABNORMALITY SEEN. NO ACUTE BLEED OR MASS EFFECT.
[2021-09-20 10:53] LABS: African American GFR (CKD) 121.5 (60.0-200.0); Albumin 3.4 g/dL (3.8-4.9); Anion Gap 11.8 mmol/L (4.00-12.00); BUN/Creat Ratio 16.17 Ratio (12.00-20.00); Blood Urea Nitrogen 9.7 mg/dL (9.0-27.0); Calcium 8.3 mg/dL (8.7-10.3); Carbon Dioxide 21.2 mmol/L (21.6-31.8); Globulin 1.7 g/dL (1.6-3.3); Non-African American GFR(CKD) 104.8 (60.0-200.0); Potassium 3.2 mmol/L (3.5-5.5); Total Bilirubin 0.3 mg/dL (0.30-1.20); Total Protein 5.1 g/dL (6.2-8.2)
[2021-09-20] MEDS ORDERED: methylPREDNISolone SOD SUCCI 125 MG/2 ML VIAL IV STA (10:55)
--- NOTE | 2021-09-20 10:55 | CT ---
EXAMINATION TYPE: CT angio head neck DATE OF EXAM: 09/20/2021 HISTORY: CVA COMPARISON: None CT DLP: 302.2 mGycm. Automated Exposure Control for Dose Reduction was Utilized. TECHNIQUE: CTA scan of the neck is performed with IV Contrast, patient injected with 100 mL of Isovu e 370, axial images are obtained, coronal and sagittal reformatted images are reviewed. 3D reconstruc kumar images are created on an independent workstation and reviewed. FINDINGS: The brachiocephalic origins are widely patent without calcified plaque or stenosis. The common and internal carotid arteries within the neck are widely patent without significant stenos is calcified plaque formation. Intracranially the anterior and posterior circulation are widely patent without significant stenosis or aneurysmal dilatation. IMPRESSION: Unremarkable CTA of the head and neck.
[2021-09-20 11:00] LABS: Amphetamine Screen,Urine Detected (NotDetected); Barbiturate Screen,Urine Not Detected (NotDetected); Benzodiazepines Screen,Urine Detected (NotDetected); Cocaine Screen,Urine Not Detected (NotDetected); Methadone Screen, Urine Not Detected (NotDetected); Opiate Screen,Urine Not Detected (NotDetected); Oxycodone Screen, Urine Not Detected (NotDetected); Phencyclidine Screen,Urine Not Detected (NotDetected); Tricyclic Antidepressant,Urine Detected (NotDetected); Urn Cannabinoid Scrn Not Detected (NotDetected)
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
[2021-09-20] MEDS ORDERED: POTASSIUM CHLORIDE 20 MEQ in WATER FOR INJECTION 1 100ML.BAG IVPB STA (14:17)
[2021-09-20] MEDS ORDERED: HALOPERIDOL LACTATE 5 MG/ML 1 ML VIAL IM STA (15:13)
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
[2021-09-21] MEDS: hydrALAZINE HCL 25 MG TAB PO SCH ×3 (00:37→18:33)
[2021-09-21] MEDS: SODIUM CHLORIDE 0.9% 1,000 ML IV SCH ×2 (06:22→13:36)
[2021-09-21] MEDS ORDERED: ASPIRIN 325 MG TAB PO SCH (09:00)
[2021-09-21] MEDS: DULoxetine HCL 60 MG CAPSULE.DR PO SCH ×2 (09:53→20:58)
[2021-09-21] MEDS: SILDENAFIL 20 MG TAB PO SCH ×3 (09:54→20:58)
[2021-09-21] MEDS: CHOLECALCIFEROL 25 MCG (1000 IU) TABLET PO SCH (09:54)
[2021-09-21] MEDS: buPROPion XL 150 MG TAB.ER.24H PO SCH (09:54)
--- NOTE | 2021-09-21 10:00 | ECHOF ---
Referral Reason:Thrombus MEASUREMENTS -------- HEIGHT: 162.6 cm WEIGHT: 64.0 kg BP: RVIDd: 2.3 cm (< 3.3) IVSd: 0.9 cm (0.6 - 1.1) LVIDd: 4.7 cm (3.9 - 5.3) LVPWd: 1.3 cm (0.6 - 1.1) IVSs: 1.1 cm LVIDs: 3.7 cm LVPWs: 1.4 cm Ao Diam: 2.8 cm (2.0 - 3.7) AV Cusp: 1.8 cm (1.5 - 2.6) LA Diam: 4.4 cm (2.7 - 3.8) MV EXCURSION: 18.395 mm (> 18.000) MV EF SLOPE: 52 mm/s (70 - 150) EPSS: 0.3 cm MV E Everardo: 0.70 m/s MV DecT: 216 ms MV A Everardo: 1.18 m/s MV E/A Ratio: 0.59 RAP: 5.00 mmHg RVSP: 40.13 mmHg FINDINGS -------- Sinus rhythm. This was a technically adequate study. LV size, wall thickness and systolic function are normal, with an EF greater than 55%. The left bran tricular size is normal. The right ventricle is normal in size. The left atrial size is normal. The right atrial size is normal. The aortic valve is trileaflet, and appears structurally normal. No aortic stenosis or regurgitation. The mitral valve is normal. There is trace mitral regurgitation. The tricuspid valve appears structurally normal. Mild tricuspid regurgitation present. There is m ild pulmonary hypertension. The right ventricular systolic pressure, as measured by Doppler, is 40. 13mmHg. There is no pulmonic regurgitation present. The aortic root size is normal. There is no pericardial effusion. CONCLUSIONS -------- 1. LV size, wall thickness and systolic function are normal, with an EF greater than 55%. 2. The left atrial size is normal. 3. The aortic valve is trileaflet, and appears structurally normal. No aortic stenosis or regurgitati on. 4. There is trace mitral regurgitation. 5. Mild tricuspid regurgitation present. 6. There is mild pulmonary hypertension. 7. There is no pericardial effusion. SUPERVISOR PREP: Jaymie Mitchell RDCS
[2021-09-21] MEDS: ATORVASTATIN 40 MG TAB PO SCH (10:16)
[2021-09-21 11:31] VITALS: BMI 24.3
--- NOTE | 2021-09-21 14:02 | EEG ---
ELECTROENCEPHALOGRAM REPORT DATE OF SERVICE: 09/21/2021. CLINICAL HISTORY: This is a 51-year-old woman with altered mental status. The video EEG is obtained to evaluate for seizure epileptiform activity. RELEVANT MEDICATION: The patient is not on any antiepileptic drugs. EEG TYPE: A routine 21-channel EEG is performed with video using the 10/20 electrode placement system. DESCRIPTION: Wakefulness is only obtained. During wakefulness, there is a posterior-dominant rhythm of low to moderate voltage that is well modulated and well sustained of 10.5 to 11 hertz activity. There is no sleep architecture seen. There is no focal slowing seen. There is moderate amount of myogenic artifact over the left hemisphere. Interictal and ictal is none. ACTIVATION PROCEDURE: Photic stimulation and hyperventilation are not performed. CLINICAL INTERPRETATION: This is a normal routine EEG. There are no focal slowing, epileptiform discharge or seizure on the EEG. Clinical correlation is recommended. GAURI / GRACIE: [id number] / BAILEY
--- NOTE | 2021-09-21 14:19 | P.PN ---
Progress Note - Text Progress Note Date: 09/21/21 Interval History: Patient was seen resting in bed and just completed her EEG. Currently, the patient appears to be somewhat disorganized and is unable to provide a clear history of events leading up to this hospitalization. Currently the patient just expresses disdain towards her family and friends who brought her to the hospital stating that "they got into my business which they did not need to get into my business for." When asked to further elaborate, the patient is nonsensical in her speech. She is otherwise not endorsing any suicidal or hostile homicidal ideation, intention, and/or plan. She is currently not reporting any auditory or visual hallucinations. The patient was informed that her urinary drug screen was positive for TCAs, methamphetamines, amphetamines, and benzodiazepines. The patient vehemently denies using any methamphetamine stating that she last used that drug years ago. She does not wish this provider to contact any family members regarding this admission at this time. Mental Status Exam: General Appearance: Patient appears to be stated age is alert, directable, and but uncooperative. Behavior: Patient is calmly seated without any agitated behavior. Speech: Patient's speech is fluent and nonpressured. Nonsensical at times. Vague. Mood/Affect: Mood is "annoyed." Affect is irritable Suicidality/Homicidality: Patient denies having any suicidal or homicidal ideation intent or plan. Perceptions: Patient denies any visual hallucinations and denies any auditory hallucinations Though content/process: The patient continues to be somewhat disorganized and is unable to provide any clear history of exiting of this hospitalization appears to be vague and guarded in her responses. Memory and concentration: AOX3, grossly intact for the purposes of this session Judgment and insight: Improving mildly Assessment Altered mental status History of closed head injury History of major depressive disorder with psychotic features Methamphetamine abuse PLAN: -Continue with your medical management. -Medication changes: Continue Cymbalta 60 mg by mouth twice a day for management of depression Continue Wellbutrin XL 150 mg by mouth daily for management of depression - we will consider tapering off this medication should she continue to present with significant irritability and mood swings. We will restart Seroquel 50 mg at bedtime as the patient is presenting with some mood lability and some disorganization. -At this time patient DOES NOT meet criteria for inpatient psychiatric admission. We will continue to reevaluate the patient to see if she will require inpatient psychiatric admission. She does display significant improvement in regards to her initial presentation of confusion but continues to be somewhat guarded and evasive on questioning. She is otherwise not endorsing any imminent risk of harm to self or others. -Delirium precautions recommended with patient including - avoiding use of narcotics and WIRELESS SALES CONSULTANT sedatives, limit anticholinergic medications when possible, frequent re-orientation, minimize use of restraints, open window shades during the day and close them at night -Psychiatry will continue to follow along.
--- NOTE | 2021-09-21 15:07 | P.PN ---
Subjective Progress Note Date: 09/21/21 Principal diagnosis: CC: AMS Patient is a 51-year-old female with hypertension, colitis, ovarian cyst, and back pain who initially presented to the ER on 09/19 due to altered mentation. She managed to elope from the ER was brought back by police. She was referred for admission for workup for her altered mental status. When patient was seen in the ED she had tangential thoughts. Patient's UDS was positive for amphetamines and methamphetamine. Her home psych meds were resumed. On 09/20/2021 patient was lethargic and had slurring of the speech and also possible facial droop. Patient was seen by neurology who recommended stroke workup. Patient had a CT head that was unremarkable. CTA head and neck was also unremarkable. MRI is pending. Echocardiogram is also pending. Due to patient's lethargy her seroquell and baclofen and home opioids were held. Patient was seen and examined on 09/21/2021. Patient this morning is awake and alert. She is AAO 2-3 (oriented to name and time and knows that she is in the hospital however she thinks she was in [facility]. Patient also expressing paranoid thoughts. She states that her caregiver cannot be trusted. She is also refusing to take her medications because she knows that she did not have a stroke. She denies taking any amphetamines or metanephrines. Objective - Vital Signs Vital signs: Vital Signs Temp 97.1 F L 09/20/21 21:00 Pulse 98 09/21/21 05:00 Resp 18 09/21/21 05:00 BP 124/74 09/21/21 05:00 Pulse Ox 99 09/21/21 05:00 Intake & Output 09/20/21 09/21/21 09/21/21 18:59 06:59 18:59 Intake Total 118 Output Total 1999 676 Balance -1999 118 Weight 62.596 kg 64.3 kg Intake: Oral 118 Output: Urine 1999 675 Uretheral (Padilla) 1000 Stool 1 Other: Voiding Method Diaper Indwelling Catheter # Voids 0 - Exam General examination - Alert and Oriented 3 in NAD Heart - + S1S2 no murmurs Lungs - Clear to auscultation Abdomen soft NT ND +ve BS Extremities - No edema LEGAL ARCHIVIST - Moving all 4 extremities spontaneously, no focal deficits Psych - paranoid thoughts - Labs CBC & Chem 7: 09/20/21 06:42 09/20/21 06:42 Assessment and Plan Assessment: Lethargy with left-sided eyelid droop and loss of nasolabial fold seen on 09/20/2021 -Patient's symptoms have resolved -Possible etiology could include TIA vs seizure. Also possibly patient may have been sedated due to her home sedative meds which include Seroquel and Depakote and baclofen. -Hold all home sedative meds except for Seroquel that will be started at a lower dose -CTA head and neck is unremarkable, CT head was also unremarkable -Resume aspirin and statin however patient is refusing -EEG prelim is negative for siezure activity -Echo is unremarkable -Check MRI -Speech PT OT consult -Neurology consult Flight of ideas likely due to psychosis -Anticipate patient will need inpatient psych placement -When necessary Ativan -Keep one-to-one sitter as patient is high risk for elopement. -Resume Cymbalta and bupropion at home dose and restart Seroquel at a lower dose -At this time psychiatrist is not recommending inpatient psych but will reevaluate patient again tomorrow and recommend discharge vs inpatient psych. Hypertension -Controlled -Resume home BP meds History of closed head injury History of migraine headaches DVT prophylaxis: SCDs Discussed with: Patient, nursing Anticipated discharge: in [address]: likely inpatient psych vs home with home care
--- NOTE | 2021-09-21 17:33 | P.PN ---
Subjective Progress Note Date: 09/21/21 I am seeing the patient for the first time for neurological management. Please refer to Dr. Patterson's note for further details. Patient denies any recalls of facial droop or slurring of speech. She denies of any neurological deficits. She states she has been having depression because of loss of her son. Objective - Vital Signs Vital signs: Vital Signs Temp 97.1 F L 09/20/21 21:00 Pulse 105 H 09/21/21 11:56 Resp 18 09/21/21 11:56 BP 125/60 09/21/21 11:56 Pulse Ox 97 09/21/21 11:56 Intake & Output 09/20/21 09/21/21 09/21/21 18:59 06:59 18:59 Intake Total 236 Output Total 1999 676 600 Balance -1999 -6 -364 Weight 62.596 kg 64.3 kg 64.3 kg Intake: Oral 236 Output: Urine 19995 600 Uretheral (Padilla) 1000 Stool 1 Other: Voiding Method Diaper Indwelling Catheter # Voids 0 - Exam GENERAL: The patient is lying in bed and is not in acute distress. NEUROLOGICAL: Higher mental function: The patient is awake, alert, oriented to self, place and time. Patient is following commands. No aphasia and no neglect. Cranial nerves: The pupils are round, equal and reactive to light and accommodation. Visual oh are full to confrontation throughout. Extraocular movement is intact no nystagmus is noted. Facial sensation is normal to touch throughout. The facial strength is normal throughout. Hearing is normal bilaterally to hand rub. Tongue is midline and moved [id number] without any difficulty. No dysarthria is noted. Shoulder shrug is normal bilaterally. Motor: The strength is 5 over 5 throughout. Normal tone and bulk. Cerebellum: Normal finger to nose bilaterally. Sensation: Sensation is normal to touch throughout. Plantars are downgoing bilaterally. WORK-UP: Patient had a CT head that was unremarkable. CTA head and neck was also unremarkable. 2-D echo was reported as a ejection fraction of 55%. Left atrial size is normal light. Mild pulmonary hypertension. - Labs CBC & Chem 7: 09/20/21 06:42 09/20/21 06:42 Assessment and Plan Assessment: Reported transient left facial droop and dysarthria. Possible TIA. Methamphetamine and Amphetamine use Polysubstance use with methamphetamine, amphetamine, benzos History of closed head injury History of major depression with psychosis Plan: Routine EEG is normal. There are no focal slowing, perform discharges or seizure on EEG. Pending MRI of the brain. Patient is currentlly aspirin 325mg daily and I will lower it to ASA 81mg daily. Continue Lipitor 40 mg daily for secondary stroke prophylaxis. Lipid panel is pending PT, OT and PATTERN MECHANIC are consulted Continue neuro checks. Cardiac regarding Psychiatry team is on board Defer the rest of the medical management to the primary team. Recommend patient to follow-up with neurologist as outpatient within 2 weeks. If MRI Brain is negative for stroke, then patient is clear from neurological perspective. Leroy mojica MD Neuro-Hospitalist Time with Patient: Less than 30
[2021-09-21 18:42] LABS: Chol/HDL Ratio 1.98 Ratio; HDL Cholesterol 56.6 mg/dL (40.00-60.00)
[2021-09-21 18:55] LABS: Triglycerides 46.7 mg/dL (0.00-149.00)
[2021-09-21] MEDS ORDERED: QUEtiapine 50 MG TAB PO SCH (21:00)
[2021-09-22] MEDS: hydrALAZINE HCL 25 MG TAB PO SCH ×3 (00:51→15:38)
[2021-09-22] MEDS: SODIUM CHLORIDE 0.9% 1,000 ML IV SCH ×3 (00:51→15:38)
[2021-09-22] MEDS: ATORVASTATIN 40 MG TAB PO SCH (08:45)
[2021-09-22] MEDS: DULoxetine HCL 60 MG CAPSULE.DR PO SCH (08:45)
[2021-09-22] MEDS: CHOLECALCIFEROL 25 MCG (1000 IU) TABLET PO SCH (08:46)
[2021-09-22] MEDS: SILDENAFIL 20 MG TAB PO SCH ×2 (08:46→17:24)
[2021-09-22] MEDS: buPROPion XL 150 MG TAB.ER.24H PO SCH (08:46)
[2021-09-22] MEDS ORDERED: ASPIRIN 81 MG PO SCH (09:00)
--- NOTE | 2021-09-22 12:54 | P.PN ---
Progress Note - Text Progress Note Date: 09/22/21 Interval History: Patient was seen by her bedside and is currently coming her hair. The patient reports she is feeling much better. She continues to be a poor historian of events leading up to this hospitalization. She appears to not remember speaking with this provider yesterday. Today, she is otherwise presenting as being alert and oriented in all spheres. She is not reporting any suicidal or homicidal ideation, intention, and/or plan. She is not reporting any auditory or visual hallucinations. She denies any issues with sleep or appetite and has been addressing her hygiene and grooming. The patient continues to deny any substance abuse. Mental Status Exam: General Appearance: Patient appears to be stated age is alert, directable, and cooperative Behavior: Patient is calmly seated without any agitated behavior. Speech: Patient's speech is fluent and nonpressured. Clear and coherent. Mood/Affect: Mood is "I'm fine." Affect is irritable but less so than yesterday. Suicidality/Homicidality: Patient denies having any suicidal or homicidal ideation intent or plan. Perceptions: Patient denies any visual hallucinations and denies any auditory hallucinations Though content/process: Patient continues to be somewhat guarded in her responses but is otherwise linear and logical in short conversation. Memory and concentration: AOX3, grossly intact for the purposes of this session Judgment and insight: Improving mildly Assessment Altered mental status History of closed head injury History of major depressive disorder with psychotic features Methamphetamine abuse PLAN: -Continue with your medical management. -Medication changes: Continue Cymbalta 60 mg by mouth twice a day for management of depression Continue Wellbutrin XL 150 mg by mouth daily for management of depression Increase Seroquel to 100 mg at bedtime for mood stabilization. -At this time patient DOES NOT meet criteria for inpatient psychiatric admission. The patient is currently not presenting with any certifiable criteria for involuntary inpatient psychiatric hospitalization. She does have risk factors for self harm including substance abuse and a history of traumatic brain injury but she is currently not presenting with any suicidal or homicidal ideation, intention, and/or plan. She is not overtly psychotic. -Delirium precautions recommended with patient including - avoiding use of narcotics and FLATWORK WASHER sedatives, limit anticholinergic medications when possible, frequent re-orientation, minimize use of restraints, open window shades during the day and close them at night -Psychiatry filled out a negative certificate voiding involuntary psychiatric admission. -Recommend outpatient psychiatric follow-up. -Patient is cleared psychiatrically for discharge. Psychiatry will sign off at this time. Thank you for this consult.
--- NOTE | 2021-09-22 14:49 | MR ---
EXAMINATION TYPE: MR brain wo/w con DATE OF EXAM: 09/22/2021 COMPARISON: CT brain 2 days earlier. Most recent brain MRI May 31, 2018 HISTORY: Altered mental status TECHNIQUE: Multiplanar, multisequence images of the brain and brainstem is performed without and with IV contras t, utilizing 6.5 mL intravenous Gadavist . FINDINGS: Diffusion weighted images demonstrate no evidence of a recent infarct or other diffusion ab normality. The ventricular system and cisternal spaces are normal and stable in size and appearance. The brain volume is age appropriate. Slightly larger 7 mm T2 hyperintense focus axial image 23 left frontal lobe. A few additional scattered tiny lesions redemonstrated. Approximately 5 scattered lesio ns again seen. There are however new subcortical right-sided lesion seen by us FLAIR image 20 without enhancement. There is nonspecific asymmetric curvilinear right dural enhancement noted. One slightly more thickened area could reflect to a subtle focus of curvilinear increased T1 signal sagittal imag e 20 right parietal level corresponding to axial image 21. Midline structures demonstrate normal morphology. The craniocervical junction appears within normal limits. Post contrast images demonstrate no abnormal enhancement. The dural venous sinuses appear pa tent. Mild mucosal thickening inferior maxillary sinuses bilaterally small mucous retention cysts and /or polyps. Nasal septum is redemonstrated slightly deviated to right of midline. Globes are intact b ilaterally. IMPRESSION: 1. No MRI evidence for a recent infarct. 2. Mild nonspecific white matter changes are present with interval slight growth in the largest poste rior left frontal lesion. There are new subcortical lesions in the periphery of the right brain paren chyma. Mild asymmetric increased right dural enhancement. Cannot exclude tiny amount of subacute extr a-axial hemorrhage on the right. Advise repeat CT to further evaluate. Etiology of above uncertain. C onsider atypical infectious process. A Yellow level critical message alert has been initiated for Dara Kingston DO via the [facility] Critical Results System on 09/22/2021 2:47 PM. This message alert has been sent to Dara amaya DO via the preferences provided by the clinician for the receipt of Radiology Critical Findings. Message ID [id number].
[2021-09-22 15:19] VITALS: BP 169/76; PULSE 71; RESP 16; TEMP 98.4
--- NOTE | 2021-09-22 17:38 | P.PN ---
Subjective Progress Note Date: 09/22/21 Patient seen at bedside and she stated that she's doing well. She denies of any focal weakness, numbness, visual disturbance, difficulty getting her words out. She said that she has had over the bilateral temporal and she stated that it was the mild and this is chronic and she denies any nausea or vomiting. She denies of any photophobia photophobia Objective - Vital Signs Vital signs: Vital Signs Temp 98.4 F 09/22/21 15:18 Pulse 71 09/22/21 15:18 Resp 16 09/22/21 15:18 BP 169/76 09/22/21 15:18 Pulse Ox 99 09/22/21 15:18 Intake & Output 09/21/21 09/22/21 09/22/21 18:59 06:59 18:59 Intake Total 354 237 120 Output Total 600 260 601 Balance -246 -23 -481 Weight 64.3 kg 64.9 kg Intake: Oral 354 237 120 Output: Urine 600 260 600 Uretheral (Padilla) 300 Stool 1 Other: Voiding Method Indwelling Catheter Indwelling Catheter Toilet - Exam GENERAL: The patient is lying in bed and is not in acute distress. NEUROLOGICAL: Higher mental function: The patient is awake, alert, oriented to self, place and time. Patient is following commands. No aphasia and no neglect. Cranial nerves: The pupils are round, equal and reactive to light and accommodation. Visual oh are full to confrontation throughout. Extraocular movement is intact no nystagmus is noted. Facial sensation is normal to touch throughout. The facial strength is normal throughout. Hearing is normal bilaterally to hand rub. Tongue is midline and moved [id number] without any difficulty. No dysarthria is noted. Shoulder shrug is normal bilaterally. Motor: The strength is 5 over 5 throughout. Normal tone and bulk. Cerebellum: Normal finger to nose bilaterally. Sensation: Sensation is normal to touch throughout. Plantars are downgoing bilaterally. WORK-UP: Patient had a CT head that was unremarkable (had two CT of head on 09/19/2021 and 09/20/2021). CTA head and neck was also unremarkable. 2-D echo was reported as a ejection fraction of 55%. Left atrial size is normal light. Mild pulmonary hypertension. Routine EEG on 09/21/2021 is normal. There are no focal slowing, epileptiform discharges or seizure on the EEG. MRI of the brain is reported as no recent MRI evidence of infarct area. There is mild nonspecific white matter changes are present with interval slight growth in the largest posterior left frontal lesion. There are new subcortical lesion in the periphery of the right brain parenchyma. Mild asymmetric increased right dural enhancement. Cannot exclude tiny amount of subacute extra-axial hemorrhage on the right. Advised repeat CT to further evaluate. Etiology of above uncertain. Consider atypical infection process. - Labs CBC & Chem 7: 09/20/21 06:42 09/20/21 06:42 Assessment and Plan Assessment: Reported transient left facial droop and dysarthria. Possible TIA. ?subacute extra-axial hemorrhage on the right (on MRI Brain but negative on two CT head). Unknown etiology. Unsure if due to drug use vs trauma vs other. Mild asymmetric increased right dural enhancement. new subcortical lesion in the periphery of the right brain parenchyma. Cannot exclude infection process. Methamphetamine and Amphetamine use Polysubstance use with methamphetamine, amphetamine, benzos History of closed head injury History of major depression with psychosis Plan: Will hold ASA 81mg because of ?hemorrhage on MRI Brain. Continue Lipitor 40 mg daily for secondary stroke prophylaxis. I consulted anesthesiology for a lumbar puncture and I ordered CSF 14, glucose, cell count, viral panel, Lyme disease. PT, OT and LEAD INSPECTOR are consulted Continue neuro checks. Cardiac regarding Psychiatry team is on board Defer the rest of the medical management to the primary team. Recommend patient to follow-up with neurologist as outpatient within 2 weeks. Patient refused to get lumbar puncture and she was to leave the hospital. I notified her it's beneficial to get the lumbar puncture to rule out any infection process but she refuses. Patient will like to go AGAINST MEDICAL ADVICE. The plan is discussed with the patient's nurse and primary team. Leroy mojica MD Neuro-Hospitalist Time with Patient: Less than 30
[2021-09-22] MEDS ORDERED: QUEtiapine 100 MG TAB PO SCH (21:00)
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
== END 2021-09-22 18:13 | disposition left against medical advice (07) | DRG 66 ==
LOC: EC 13:30 → 5NMEDONC 15:54 → 3SCARD 09-20 20:00 → OBSVTOIN 09-21 15:12
PROVIDERS: ADMIT Internal Medicine; ATTEND Internal Medicine
DX: I62.9 Nontraumatic intracranial hemorrhage, unspecified (principal); F15.10 Other stimulant abuse, uncomplicated; F17.200 Nicotine dependence, unspecified, uncomplicated; F29 Unspecified psychosis not due to a substance or known physiological condition; G89.29 Other chronic pain; H02.402 Unspecified ptosis of left eyelid; I10 Essential (primary) hypertension; K52.9 Noninfective gastroenteritis and colitis, unspecified; N83.209 Unspecified ovarian cyst, unspecified side; Z20.822 Contact with and (suspected) exposure to COVID-19; R29.810 Facial weakness; R47.81 Slurred speech; D72.829 Elevated white blood cell count, unspecified; G43.909 Migraine, unspecified, not intractable, without status migrainosus; F31.9 Bipolar disorder, unspecified; F41.1 Generalized anxiety disorder; Z87.820 Personal history of traumatic brain injury; Z79.899 Other long term (current) drug therapy; Z91.19 Patient's noncompliance with other medical treatment and regimen
CPT/HCPCS: 36415; 70450; 70496; 70498; 70553; 71045; 80053; 80061; 80164; 80306; 80320; 81001; 82140; 83735; 84484; 85025; 85610; 85730; 87635; 93005; 93306; 95816; 96361; 96374; 99285

== ENCOUNTER 2021-09-30 16:18 | Emergency (ER) | payer OTHER ==
[2021-09-30 16:49] VITALS: BP 114/78; PULSE 100; RESP 18; TEMP 98.7
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
== END 2021-10-01 01:01 ==
LOC: EEVIPCON 16:18 → EC 16:18
DX: F99 Mental disorder, not otherwise specified (principal); F17.200 Nicotine dependence, unspecified, uncomplicated; I10 Essential (primary) hypertension; Z88.8 Allergy status to other drugs, medicaments and biological substances; Z79.899 Other long term (current) drug therapy
CPT/HCPCS: 82075; 99284

== ENCOUNTER 2023-11-28 13:38 | Emergency (ER) | payer OTHER ==
[2023-11-28 14:00] VITALS: TEMP 98.6
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
[2023-11-28] MEDS ORDERED: LORazepam 2 MG/ML INJ IM STA (20:52)
[2023-11-28] MEDS ORDERED: ZIPRASIDONE 20 MG VIAL IM STA (21:15)
[2023-11-29] MEDS: PREGABALIN 75 MG CAP PO SCH (14:13)
[2023-11-29] MEDS: CYCLOBENZAPRINE 10 MG TAB PO PRN (14:13)
[2023-11-30] MEDS ORDERED: LORazepam 2 MG/ML INJ IM STA ×2 (02:46→16:27)
[2023-11-30] MEDS ORDERED: ZIPRASIDONE 20 MG VIAL IM STA (02:46)
[2023-11-30 05:38] VITALS: BP 108/58; PULSE 68; RESP 16
[2023-11-30 05:38] LABS: African American GFR (CKD) >90 (>60 ml/min/1.73 sqM); Anion Gap 3 mmol/L; Blood Urea Nitrogen 17 mg/dL (7-17); Carbon Dioxide 27 mmol/L (22-30); Chloride 107 mmol/L (98-107); Glucose 104 mg/dL (74-99); Non-African American GFR(CKD) >90 (>60 ml/min/1.73 sqM); Sodium 137 mmol/L (137-145)
[2023-11-30 05:40] LABS: Basophils % (A) 0 %; Eosinophils # (A) 0.3 k/uL (0-0.7); Eosinophils % (A) 4 %; HCT 34.8 % (34.0-46.0); HGB 11.5 gm/dL (11.4-16.0); Lymphocytes # (A) 1.9 k/uL (1.0-4.8); Lymphocytes % (A) 30 %; MCH 31.1 pg (25.0-35.0); MCHC 33.1 g/dL (31.0-37.0); MCV 93.9 fL (80.0-100.0); Mean Platelet Volume 7.6; Monocytes # (A) 0.4 k/uL (0-1.0); Monocytes % (A) 6 %; Neutrophils # (A) 3.7 k/uL (1.3-7.7); Neutrophils % (A) 58 %; Platelet Count 308 k/uL (150-450); Potassium 3.4 mmol/L (3.5-5.1); RDW 12.5 % (11.5-15.5); WBC 6.5 k/uL (3.8-10.6)
[2023-11-30] MEDS: CYCLOBENZAPRINE 10 MG TAB PO PRN (11:05)
[2023-11-30] MEDS: PREGABALIN 75 MG CAP PO SCH (11:05)
[2023-11-30] MEDS ORDERED: NICOTINE 21MG/24HR PATCH TRANSDERM STA (16:26)
[2023-11-30] MEDS ORDERED: ALPRAZolam 0.5 MG TAB PO STA (16:33)
== END 2023-11-30 16:50 | disposition other institution (70) ==
LOC: EEVIPCON 13:38 → EC 13:38
DX: F32.3 Major depressive disorder, single episode, severe with psychotic features (principal); F41.9 Anxiety disorder, unspecified; I10 Essential (primary) hypertension; F32.A Depression, unspecified; F17.200 Nicotine dependence, unspecified, uncomplicated; F12.90 Cannabis use, unspecified, uncomplicated; F15.90 Other stimulant use, unspecified, uncomplicated; Z79.899 Other long term (current) drug therapy; Z88.8 Allergy status to other drugs, medicaments and biological substances; Z20.822 Contact with and (suspected) exposure to COVID-19
CPT/HCPCS: 82075; 36415; 80048; 85025; 87635; 99285; 96372 ×4; S4990; J2060 ×2; J3486 ×2

== ENCOUNTER 2023-12-15 23:29 | Emergency (ER) | payer OTHER ==
[2023-12-15 23:43] VITALS: RESP 16
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
[2023-12-16 00:58] VITALS: BP 102/66; PULSE 81; TEMP 98.3
== END 2023-12-16 00:46 | disposition home or self-care (01) ==
LOC: EC 23:29
DX: Z02.89 Encounter for other administrative examinations (principal); I10 Essential (primary) hypertension; Z86.59 Personal history of other mental and behavioral disorders; F17.200 Nicotine dependence, unspecified, uncomplicated; F12.90 Cannabis use, unspecified, uncomplicated; F15.90 Other stimulant use, unspecified, uncomplicated; Z88.8 Allergy status to other drugs, medicaments and biological substances
CPT/HCPCS: 99283

== ENCOUNTER → 2024-10-30 | Outpatient (CLI) | payer OTHER ==
--- NOTE | 2024-10-30 13:35 | CTL ---
EXAMINATION TYPE: CT Low Dose Lung DATE OF EXAM ORDERED: 10/30/2024 COMPARISON: Chest radiograph 09/19/2021 CLINICAL INDICATION: Female, 54 years old with history of Z12.2 ENCNTR SCREEN FOR MALIGNANT NEOPLASM OF RESP; PHH, lung screening, Lung cancer screening, History of Smoking/tobacco use. TECHNIQUE: Low dose computed tomography scan was performed through the chest at 1 mm thick sections a nd reconstructed images in multiple planes at 1 mm and [address] DLP: [address] CTDI: 2.68 mGy Automated exposure control for dose reduction was used. CT DIAGNOSTIC QUALITY: Satisfactory FINDINGS: Nodules: No clinically significant pulmonary nodules. LUNGS: COPD: Severity: None Fibrosis: Severity: None Lymph nodes: None Other findings: None RIGHT PLEURAL SPACE: Effusion: None Calcification: None Thickening: None Pneumothorax: None LEFT PLEURAL SPACE: Effusion: None Calcification: None Thickening: None Pneumothorax: None HEART: Heart Size: Normal Coronary Calcification: None Pericardial Effusion: None OTHER FINDINGS: Upper abdomen: None Bony thorax: None Supraclavicular region: None Other: None IMPRESSION: No clinically significant pulmonary nodules. CT LUNG RAD AND CT CHEST RECOMMENDATION: Lung-Rad 1 Negative: Continue annual screening with LDCT in 12 months. S Modifier (other clinically significant findings): None [facility], , 10/30/2024 1:32 PM
== END | disposition home or self-care (01) ==
LOC: RADCTMAIN 12:32
PROVIDERS: ATTEND Internal Medicine
DX: Z12.2 Encounter for screening for malignant neoplasm of respiratory organs (principal); F17.210 Nicotine dependence, cigarettes, uncomplicated
CPT/HCPCS: 71271

== ENCOUNTER 2024-12-10 15:46 | Emergency (ER) | payer OTHER ==
[2024-12-10 16:10] VITALS: RESP 18; TEMP 97
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
[2024-12-10 17:20] LABS: Basophils % (A) 0 %; Eosinophils # (A) 0.2 k/uL (0-0.7); Eosinophils % (A) 3 %; HGB 13.3 gm/dL (11.4-16.0); Lymphocytes # (A) 2.5 k/uL (1.0-4.8); Lymphocytes % (A) 32 %; MCH 29.8 pg (25.0-35.0); MCHC 32.5 g/dL (31.0-37.0); MCV 91.6 fL (80.0-100.0); Mean Platelet Volume 6.7; Monocytes # (A) 0.4 k/uL (0-1.0); Monocytes % (A) 5 %; Neutrophils # (A) 4.6 k/uL (1.3-7.7); Neutrophils % (A) 59 %; Platelet Count 360 k/uL (150-450); RBC 4.48 m/uL (3.80-5.40); RDW 13.4 % (11.5-15.5); WBC 7.9 k/uL (3.8-10.6)
[2024-12-10 17:31] LABS: ALT 37 U/L (4-34); AST 26 U/L (14-36); African American GFR (CKD) >90 (>60 ml/min/1.73 sqM); Albumin 4.5 g/dL (3.5-5.0); Alkaline Phosphatase 88 U/L (38-126); Anion Gap 9 mmol/L; Blood Urea Nitrogen 16 mg/dL (7-17); C Reactive Protein 0.9 mg/dL (<1.0); Calcium 9.3 mg/dL (8.4-10.2); Carbon Dioxide 23 mmol/L (22-30); Chloride 108 mmol/L (98-107); Glucose 94 mg/dL (74-99); Non-African American GFR(CKD) >90 (>60 ml/min/1.73 sqM); Phosphorus 3.9 mg/dL (2.5-4.5); Sodium 140 mmol/L (137-145); Total Bilirubin 0.3 mg/dL (0.2-1.3); Total Protein 7.1 g/dL (6.3-8.2)
[2024-12-10] MEDS: diphenhydrAMINE 50 MG/ML 1 ML VIAL IVP STA (17:32)
[2024-12-10] MEDS: SODIUM CHLORIDE 0.9% 1,000 ML IV STA (17:32)
[2024-12-10] MEDS: PROCHLORPERAZINE INJ 10 MG/2 ML VIAL IVP STA (17:32)
[2024-12-10] MEDS: HYDROmorphone 0.5 MG/0.5 ML SYRINGE IVP STA (17:32)
--- NOTE | 2024-12-10 18:24 | CT ---
EXAMINATION TYPE: CT iac wo/w con DATE OF EXAM: 12/10/2024 6:18 PM COMPARISON: None. INDICATION: Patient age: Female; 54 years old; Reason for study: ,bleedingLear; [facility]. TECHNIQUE: Multiple thin axial images were obtained through the temporal bones and internal auditory canals. Additional coronal reformatted images were obtained. No IV contrast was utilized. CT Contrast: 100 mL of Isovue 300 without and with IV Contrast, none. CT DLP: 572.2 mGycm, Automated exposure control for dose reduction was used. FINDINGS: Right Temporal Bone: External Ear: The external auditory canal is unremarkable, The tympanic membrane is present and unrem arkable. Middle Ear: The ossicles demonstrate a normal appearance. Prussak's space is clear and the scutum i s intact. There is no evidence of osseous erosion and the tegmen tympani is intact. Inner Ear: Cochlea, vestibule and semi circular canals are unremarkable. No evidence of carotid emmanuel l dehiscence. Two and a half turns of the cochlea are identified. The vestibular aqueduct is not enl arged. Mastoid Air Cells: The mastoid air cells are clear. The tegmen mastoideum is intact. The aditus ad an trum is clear. Internal Auditory Canal: The internal auditory canal is unremarkable. Left Temporal Bone: External Ear: The external auditory canal is unremarkable, The tympanic membrane is present and unrem arkable. Middle Ear: The ossicles demonstrate a normal appearance. Prussak's space is clear and the scutum i s intact. There is no evidence of osseous erosion and the tegmen tympani is intact. Inner Ear: Cochlea, vestibule and semi circular canals are unremarkable. No evidence of carotid emmanuel l dehiscence. Two and a half turns of the cochlea are identified. The vestibular aqueduct is not enl arged. Mastoid Air Cells: The mastoid air cells are clear. The tegmen mastoideum is intact. The aditus ad an trum is clear. Internal Auditory Canal: The internal auditory canal is unremarkable. Other: Mild paranasal sinus mucosal thickening. No abnormal postcontrast enhancement identified. The vascular structures are intact. No evidence for occlusion or aneurysmal dilation in the hospital skull base. 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 No appreciable difference in the soft tissues around either external auditory canal. Findings relativ ben symmetric. IMPRESSION: 1. Normal internal auditory canal study. 2. No evidence account for patient's left ear bleeding. Correlate with physical exam otoscope [facility], , 12/10/2024 6:22 PM
[2024-12-10] MEDS: LEVOFLOXACIN 750MG-D5W PMX 750 MG in DEXTROSE/WATER 1 150ML.BAG IVPB STA (18:43)
[2024-12-10] MEDS: KETOROLAC 15 MG/ML 1 ML VIAL IVP STA (18:48)
[2024-12-10] MEDS: LEVOFLOXACIN 750 MG TAB PO STA (18:48)
[2024-12-10] MEDS: OFLOXACIN 0.3% OPHTH DROPS 5 ML BOTTLE LEFT EAR STA (18:49)
[2024-12-10 19:16] VITALS: BP 111/74; PULSE 70
== END 2024-12-10 19:15 | disposition home or self-care (01) ==
LOC: EC 15:46
DX: H65.92 Unspecified nonsuppurative otitis media, left ear (principal); F17.200 Nicotine dependence, unspecified, uncomplicated; Z88.8 Allergy status to other drugs, medicaments and biological substances
CPT/HCPCS: 36415; 80053; 83735; 84100; 85025; 86140; 70482; 99284; 96374; 96375; 96361; J1200; J0780; J1885; J1171; Q9967

== ENCOUNTER 2025-03-04 23:14 | Emergency (ER) | payer OTHER ==
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
[2025-03-05] MEDS: LORazepam 2 MG/ML INJ IM STA (00:05)
[2025-03-05] MEDS: MORPHINE SULFATE 4 MG/ML SYRINGE IM STA (00:06)
--- NOTE | 2025-03-05 01:31 | CT ---
EXAM: CT Cervical Spine Without Intravenous Contrast CLINICAL HISTORY: ITS.REASON CT Reason: neck pain TECHNIQUE: Axial computed tomography images of the cervical spine without intravenous contrast. CTDI is 11.9 mGy and DLP is 376.4 mGy-cm. This CT exam was performed using one or more of the following dose reduction techniques: automated exposure control, adjustment of the mA and/or kV according to patient size, and/or use of iterative reconstruction technique. COMPARISON: No relevant prior studies available. FINDINGS: Vertebrae: No acute fracture. Discs/spinal canal/neural foramina: degenerative changes. Soft tissues: No prevertebral swelling. IMPRESSION: No acute fracture or subluxation.
[2025-03-05 03:00] VITALS: BP 117/78; PULSE 80; RESP 16; TEMP 97.6
== END 2025-03-05 02:59 | disposition home or self-care (01) ==
LOC: EEVIPCON 23:14 → EC 23:14
DX: M54.2 Cervicalgia (principal); G89.29 Other chronic pain; Z04.6 Encounter for general psychiatric examination, requested by authority; F17.200 Nicotine dependence, unspecified, uncomplicated; Z88.8 Allergy status to other drugs, medicaments and biological substances
CPT/HCPCS: 82075; 72125; 99285; 96372; J2060; J2270